=== PATIENT | male | born 1990 | race Caucasian/White ===

== ENCOUNTER 2016-11-22 20:00 | Emergency (ER) | payer OTHER ==
[2016-11-22] MEDS ORDERED: METHYLPREDNISOLONE INJ 125 MG/2 ML SDV IV ONE (20:16)
[2016-11-22] MEDS ORDERED: EPINEPHRINE INJ/PF 1 MG/1 ML AMPULE IM ONE ×2 (20:16→21:34)
[2016-11-22] MEDS ORDERED: DIPHENHYDRAMINE HCL 50 MG/ML VIAL IV ONE (20:16)
[2016-11-22] MEDS ORDERED: FAMOTIDINE INJ/PF 20 MG/2 ML SDV IV ONE (20:16)
--- NOTE | 2016-11-22 20:17 | ER Document Report ---
ED Allergic Reaction - General Chief Complaint: Allergic Reaction Stated Complaint: LIP SWELLING,POSSIBLE ALLERGIC REACTION Time Seen by Provider: 11/22/16 20:15 Notes: Patient is a 26-year-old male that comes emergency department for chief complaint of lip swelling after he was stung by a bee on the lower lip just prior to arrival. He states his lower lip has swollen some much he is drooling , he denies difficulty swallowing, he denies difficulty breathing, he denies rash. He has been stung by a bee without a similar reaction in the past, denies history of any reaction like this before. PMH ADHD and kidneys stones. TRAVEL OUTSIDE OF THE [place] IN LAST 30 DAYS: No - Related Data Allergies/Adverse Reactions: Penicillins Allergy (Intermediate, Verified 02/28/14 21:29) Past Medical History - General Information source: Patient - Social History Smoking Status: Never Smoker Drug Abuse: None Lives with: Family Family History: CAD, CVA, DM, Hyperlipidemia, Hypertension, Malignancy Patient has suicidal ideation: No Patient has homicidal ideation: No Renal/ Medical History: Denies: Hx Peritoneal Dialysis Musculoskeltal Medical History: Reports Hx Musculoskeletal Trauma Skin Medical History: Reports Hx Psoriasis Psychiatric Medical History: Reports: Hx Attention Deficit Hyperactivity Disorder Traumatic Medical History: Reports: Hx Fractures Surgical Hx: Negative - Immunizations Immunizations up to date: Yes Hx Diphtheria, Pertussis, Tetanus Vaccination: No Review of Systems - Review of Systems Constitutional: No symptoms reported EENT: See HPI Cardiovascular: No symptoms reported Respiratory: No symptoms reported Gastrointestinal: No symptoms reported Genitourinary: No symptoms reported Male Genitourinary: No symptoms reported Musculoskeletal: No symptoms reported Skin: No symptoms reported Hematologic/Lymphatic: No symptoms reported Neurological/Psychological: No symptoms reported Physical Exam - Vital signs Vitals: Temp Pulse Resp BP Pulse Ox 98.3 F 96 20 144/111 H 97 11/22/16 20:05 11/22/16 20:05 11/22/16 20:05 11/22/16 20:05 11/22/16 20:05 Interpretation: Normal - General General appearance: Anxious In distress: None - HEENT Head: Normocephalic, Atraumatic Eyes: Normal Conjunctiva: Normal Extraocular movements intact: Yes Eyelashes: Normal Pupils: PERRL Ears: Normal External canal: Normal Tympanic membrane: Normal Sinus: Normal Nasal: Normal Mouth/Lips: Other - Swelling of the bilateral lower lip the size of the usual, no bleeding, normal tongue, pharynx exam, normal ENT exam otherwise Pharynx: Normal Neck: Normal - Respiratory Respiratory status: No respiratory distress Chest status: Nontender Breath sounds: Normal Chest palpation: Normal - Cardiovascular Rhythm: Regular. No: Tachycardia Heart sounds: Normal auscultation, S1 appreciated, S2 appreciated Murmur: No - Abdominal Inspection: Normal Distension: No distension Bowel sounds: Normal Tenderness: Nontender. No: Tender, Guarding Organomegaly: No organomegaly - Back Back: Normal, Nontender - Extremities General upper extremity: Normal inspection, Nontender, Normal color, Normal ROM , Normal temperature General lower extremity: Normal inspection, Nontender, Normal color, Normal ROM , Normal temperature, Normal weight bearing. No: Armando's sign - Neurological Neuro grossly intact: Yes Cognition: Normal Orientation: AAOx4 Stephen Coma Scale Eye Opening: Spontaneous Paxton Coma Scale Verbal: Oriented Paxton Coma Scale Motor: Obeys Commands Stephen Coma Scale Total: 15 Speech: Normal Motor strength normal: LUE, RUE, LLE, RLE Sensory: Normal - Psychological Associated symptoms: Normal affect, Normal mood - Skin Skin Temperature: Warm Skin Moisture: Dry Skin Color: Normal Course - Re-evaluation Re-evalutation: Minimal improvement after first epinephrine, patient given a second epinephrine shortly after this. Given Benadryl, Pepcid, Solu-Medrol. Patient's lip almost completely resolved, no additional mucous membrane swelling or other abnormalities are noted. Patient monitored for almost 3 hours, he is asking multiple times to go home at this point. Discussed with patient in detail. Patient will be provided with medications, given strict return precautions, patient states satisfaction and agreement. - Vital Signs Vital signs: Temp Pulse Resp BP Pulse Ox 98.3 F 96 20 105/58 L 98 11/22/16 20:05 11/22/16 20:05 11/23/16 00:01 11/23/16 00:01 11/23/16 00:01 Discharge - Discharge Clinical Impression: Wasp sting Qualifiers: Encounter type: initial encounter Injury intent: accidental or unintentional Qualified Code(s): T63.461A - Toxic effect of venom of wasps, accidental ( unintentional), initial encounter Allergic reaction Qualifiers: Encounter type: initial encounter Qualified Code(s): T78.40XA - Allergy, unspecified, initial encounter Condition: Stable Disposition: HOME, SELF-CARE Additional Instructions: Take the prednisone as prescribed, take the Zyrtec and Pepcid for 1 week Follow-up with primary care. In the event of repeated bee sting with allergic reaction, take your EpiPen and return immediately to the emergency department. Return for any other concerning symptoms. Prescriptions: Cetirizine HCl [Zyrtec 10 mg Tablet] 1 tab PO DAILY #30 tablet Epinephrine [Epipen 2-Reginald] 0.3 mg IM ASDIR PRN #1 packet PRN Reason: Famotidine [Pepcid 20 mg Tablet] 20 mg PO DAILY #12 tablet Prednisone [Deltasone 10 mg Tablet] 10 mg PO ASDIR PRN #21 tablet PRN Reason: Forms: Return to Work
[2016-11-23 00:45] VITALS: BP 105/58
== END 2016-11-23 00:47 | disposition home or self-care (01) ==
LOC: ER 20:00
DX: T63.461A Toxic effect of venom of wasps, accidental (unintentional), initial encounter (principal); R22.0 Localized swelling, mass and lump, head; Z88.0 Allergy status to penicillin
CPT/HCPCS: 99283; 96372; 96374; 96375; J1200; J0171; J2930; S0028

== ENCOUNTER 2017-01-27 20:22 | Emergency (ER) | payer OTHER ==
[2017-01-27] MEDS ORDERED: AZITHROMYCIN 250 MG TABLET PO ONE (22:50)
[2017-01-27] MEDS ORDERED: DEXAMETHASONE 4 MG TABLET PO ONE (22:51)
--- NOTE | 2017-01-27 22:52 | ER Document Report ---
ED General - General Chief Complaint: Sore Throat Stated Complaint: SORE THROAT Time Seen by Provider: 01/27/17 22:08 Notes: Patient is a 27-year-old male with a past medical history of strep pharyngitis who presents with concerns that he has had a recurrence of strep. He reports that for the past 2 days he has had a progressively worsening soreness to his throat which is a constant, aching, burning pain. Swallowing worsens the pain. He has tried ibuprofen without improvement of the pain. He has a history of similar symptoms in the past. He denies any associated fever or constitutional symptoms. He has not seen his primary care doctor regarding today's concerns. TRAVEL OUTSIDE OF THE [place] IN LAST 30 DAYS: No - Related Data Allergies/Adverse Reactions: Penicillins Allergy (Intermediate, Verified 01/27/17 20:58) alcohol Allergy (Verified 01/27/17 20:58) bee venom protein (honey bee) Allergy (Verified 01/27/17 20:58) Past Medical History - General Information source: Patient - Social History Smoking Status: Never Smoker Frequency of alcohol use: None Drug Abuse: None Family History: CAD, CVA, DM, Hyperlipidemia, Hypertension, Malignancy Renal/ Medical History: Denies: Hx Peritoneal Dialysis Musculoskeltal Medical History: Reports Hx Musculoskeletal Trauma Skin Medical History: Reports Hx Psoriasis Psychiatric Medical History: Reports: Hx Attention Deficit Hyperactivity Disorder Traumatic Medical History: Reports: Hx Fractures - Immunizations Immunizations up to date: Yes Hx Diphtheria, Pertussis, Tetanus Vaccination: No Review of Systems - Review of Systems Notes: Constitutional: Negative for fever. HENT: Positive for sore throat. Eyes: Negative for visual changes. Cardiovascular: Negative for chest pain. Respiratory: Negative for shortness of breath. Gastrointestinal: Negative for abdominal pain, vomiting or diarrhea. Genitourinary: Negative for dysuria. Musculoskeletal: Negative for back pain. Skin: Negative for rash. Neurological: Negative for headaches, weakness or numbness. 10 point ROS negative except as marked above and in HPI. Physical Exam - Vital signs Vitals: Temp Pulse Resp BP Pulse Ox 98.5 F 81 20 134/84 H 100 01/27/17 20:58 01/27/17 20:58 01/27/17 20:58 01/27/17 20:58 01/27/17 20:58 Interpretation: Normal Notes: PHYSICAL EXAMINATION: GENERAL: appears mildly uncomfortable but in no acute distress HEAD: Atraumatic, normocephalic. EYES: Pupils equal round and reactive to light, extraocular movements intact, sclera anicteric, conjunctiva are normal. ENT: nares patent, bilateral tonsillar exudates. Uvula is midline. Moderately dry mucous membranes NECK: Normal range of motion, bilateral anterior cervical lymphadenopathy that is tender to palpation LUNGS: Breath sounds clear to auscultation bilaterally and equal. No wheezes rales or rhonchi. HEART: Regular rate and rhythm without murmurs ABDOMEN: Soft, nontender, normoactive bowel sounds. No guarding, no rebound. No masses appreciated. EXTREMITIES: Normal range of motion, no pitting or edema. No cyanosis. NEUROLOGICAL: No focal neurological deficits. Moves all extremities spontaneously and on command. PSYCH: Normal mood, normal affect. SKIN: Warm, Dry, normal turgor, no rashes or lesions noted. Course - Re-evaluation Re-evalutation: 01/28/17 03:55 Presentation of several days of sore throat in an otherwise well-appearing patient. Rapid strep is positive. History and exam are not consistent with a retropharyngeal abscess or peritonsillar abscess. Airway is patent. No difficulty handling oral secretions. Vitals within normal limits. Due to patient's penicillin allergy he has been started on a five-day course of azithromycin. A single dose of Decadron was also administered. At this time will discharge with return precautions and follow-up recommendations. Verbal discharge instructions given a the bedside and opportunity for questions given. Medication warnings reviewed. Patient is in agreement with this plan and has verbalized understanding of return precautions and the need for primary care follow-up. - Vital Signs Vital signs: Temp Pulse Resp BP Pulse Ox 99.5 F 103 H 20 130/76 H 100 01/27/17 23:22 01/27/17 23:22 01/27/17 20:59 01/27/17 23:22 01/27/17 23:22 Discharge - Discharge Clinical Impression: Strep pharyngitis Condition: Good Disposition: HOME, SELF-CARE Additional Instructions: You have been diagnosed with strep throat based on a positive strep test. Due to your history of a penicillin allergy you will be treated with azithromycin. Please take 500 mg daily for the next 4 days.. You have also been given a dose of steroids to help with your throat discomfort. Please continue to take ibuprofen 600 mg every 6 hours or Tylenol 1000 mg every 6 hours as needed for throat discomfort. You can also gargle with salt water. Continue to drink plenty of fluids. Follow-up with your primary care doctor in the next several days. Return if you become unable to swallow, have difficulty breathing, pass out, have persistent vomiting that prevents you from being able to tolerate fluids, or have any other symptoms that are concerning to you. Prescriptions: Azithromycin 500 mg PO DAILY #4 tablet Referrals: HOANG STEPHEN MD [Primary Care Provider] - Follow up as needed
[2017-01-28 00:59] VITALS: BP 130/76
== END 2017-01-27 23:23 | disposition home or self-care (01) ==
LOC: ER 20:22
DX: J02.0 Streptococcal pharyngitis (principal)
CPT/HCPCS: 87880; 99283

== ENCOUNTER 2017-06-07 20:32 | Emergency (ER) | payer OTHER ==
[2017-06-07] MEDS ORDERED: KETOROLAC TROMETHAMINE INJ/PF 30 MG/1 ML SDV IV ONE (21:59)
--- NOTE | 2017-06-07 22:00 | ER Document Report ---
ED General - General Chief Complaint: Jaw Pain Stated Complaint: SWELLING OF FACE Mode of Arrival: Ambulatory Information source: Patient TRAVEL OUTSIDE OF THE [place] IN LAST 30 DAYS: No - HPI Notes: 27-year-old male presents today with complaints of left-sided facial tenderness and swelling near his jaw 1 day. Reports intermittent chills, unsure of fevers. Reports pain is 5 out of 10, sharp and achy. Reports recent URI with nasal congestion. reports jaw pain near TMJ joint. pain is worse with eating and chewing, pain radiates to ear. Denies any n/t to face. Denies any trauma. Reports a general headache. Denies any blurred, double or loss of vision. Denies any dental pain or sinus pain. Denies any rashes. Denies any cp, sob, n/v /d, diarrhea. Denies any numbness or tingling down bilateral upper extremities. Denies any dental pain. Vaccinations are up-to-date. - Related Data Allergies/Adverse Reactions: Penicillins Allergy (Intermediate, Verified 06/07/17 20:46) alcohol Allergy (Verified 06/07/17 20:46) bee venom protein (honey bee) Allergy (Verified 06/07/17 20:46) Past Medical History - General Information source: Patient - Social History Smoking Status: Current Every Day Smoker Family History: CAD, CVA, DM, Hyperlipidemia, Hypertension, Malignancy Renal/ Medical History: Denies: Hx Peritoneal Dialysis Musculoskeltal Medical History: Reports Hx Musculoskeletal Trauma Skin Medical History: Reports Hx Psoriasis Psychiatric Medical History: Reports: Hx Attention Deficit Hyperactivity Disorder Traumatic Medical History: Reports: Hx Fractures - Immunizations Immunizations up to date: Yes Hx Diphtheria, Pertussis, Tetanus Vaccination: No Review of Systems - Review of Systems Constitutional: No symptoms reported EENT: See HPI Cardiovascular: No symptoms reported Respiratory: No symptoms reported Gastrointestinal: No symptoms reported Genitourinary: No symptoms reported Male Genitourinary: No symptoms reported Musculoskeletal: No symptoms reported Skin: No symptoms reported Hematologic/Lymphatic: No symptoms reported Neurological/Psychological: No symptoms reported Physical Exam - Vital signs Vitals: Temp Pulse Resp BP Pulse Ox 98.7 F 103 H 14 129/86 H 97 06/07/17 20:53 06/07/17 20:53 06/07/17 20:53 06/07/17 20:53 06/07/17 20:53 Interpretation: Normal, Tachycardic - HEENT Head: Normocephalic - noted tenderness to left mandible, near parotid gland. no Erythema, fluctuance noted. Turning lymphadenopathy. Eyes: Normal Conjunctiva: Normal Cornea: Normal Extraocular movements intact: Yes Sinus: Normal, Tenderness, Other - left mandible tenderness with scant swelling , no erythema or induration. Mouth/Lips: Normal Mucous membranes: Normal Pharynx: Normal Neck: Normal - Respiratory Respiratory status: No respiratory distress Chest status: Nontender Breath sounds: Normal Chest palpation: Normal - Cardiovascular Rhythm: Regular Heart sounds: Normal auscultation Pulses: Normal: Radial - Abdominal Inspection: Normal Distension: No distension Bowel sounds: Normal Tenderness: Nontender Organomegaly: No organomegaly - Neurological Neuro grossly intact: Yes Orientation: AAOx4 Stephen Coma Scale Eye Opening: Spontaneous Stephen Coma Scale Verbal: Oriented Mathis Coma Scale Motor: Obeys Commands Stephen Coma Scale Total: 15 Speech: Normal Cranial nerves: Normal Cerebellar coordination: Normal Additional motor exam normals: 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 Patient also shows to have hypokalemia, gave oral potassium chloride. Discussed to have a high potassium diet, such as salmon, spinach, avocados. Rest of laboratory findings were unremarkable. Will start patient on oral clindamycin and Flagyl in case this is a bacterial infection. Advised to follow-up with PCP within 24 hours. The concerns answered by this provider. After performing a Medical Screening Examination, I estimate there is LOW risk for CENTRAL CORD SYNDROME, EPIDURAL MASS LESION, SEVERE SPINAL STENOSIS, ARTERIAL DISSECTION, MENINGITIS, or ACUTE CORONARY SYNDROME, thus I consider the discharge disposition reasonable. I have reevaluated this patient multiple times and no significant life threatening changes are noted. The patient and I have discussed the diagnosis and risks, and we agree with discharging home to follow-up on an outpatient basis with the understanding that symptoms and presentations can change. We also discussed returning to the Emergency Department immediately if new or worsening symptoms occur. We have discussed the symptoms which are most concerning (e.g., saddle anesthesia, urinary or bowel incontinence or retention, changing or worsening pain) that necessitate immediate return. - Vital Signs Vital signs: Temp Pulse Resp BP Pulse Ox 98.7 F 89 18 124/72 99 06/08/17 02:01 06/08/17 02:01 06/08/17 02:01 06/08/17 02:01 06/08/17 02:01 - Laboratory Result Diagrams: 06/07/17 23:00 06/07/17 23:00 Laboratory results interpreted by me: 06/07/17 06/07/17 23:00 23:00 Monocytes % 16.8 H Potassium 3.5 L C-Reactive Protein 30.4 H Discharge - Discharge Clinical Impression: Acute parotitis Condition: Good Disposition: HOME, SELF-CARE Instructions: Acute Parotid Gland Swelling ([facility]) Additional Instructions: Follow-up with PCP within 1 day. Take antibiotics with food, eat yogurt daily to prevent loose stool. Warm compresses to site 20 minutes on 20 minutes off several times a day. Return to the emergency room with signs and symptoms become worse by calling [id number]: ANTIBIOTIC THERAPY: You have been given an antibiotic prescription. It's important that you take all the medication, unless instructed otherwise by your physician. Failure to complete the entire course can result in relapse of your condition. Common side effects of antibiotics include nausea, intestinal cramping, or diarrhea. Women may develop vaginal yeast infections, and babies can get yeast (thrush) in the mouth following the use of antibiotics. Contact your physician if you develop significant side effects from this medication. Allergy to this antibiotic can result in hives, wheezing, faintness, or itching. If symptoms of allergy occur, stop the medication and call the doctor. Metronidazole Metronidazole (Flagyl) has been prescribed. This medication is used to kill a type of bacteria called anaerobes, and protozoan parasites such as trichomonas and Giardia. Flagyl often causes a metallic taste in the mouth and mild nausea. Do not use alcohol in any form with Flagyl (including alcohol in medication elixirs). Flagyl interacts with alcohol to cause flushing, palpitations, headache, stomach cramps, and vomiting. Do not use Flagyl if you are taking Antabuse (disulfiram). Call the doctor at once if you develop rash, shortness of breath, itching, or lightheadedness. Please contact the following office for an appointment tomorrow or returm immediately if there are any other concerns [facility] [employer] Address: [facility] [address] [facility], [place] [address] FOLLOW-UP CARE: If you have been referred to a physician for follow-up care, call the physician s office for an appointment as you were instructed or within the next two days. If you experience worsening or a significant change in your symptoms, notify the physician immediately or return to the Emergency Department at any time for re-evaluation. Prescriptions: Clindamycin HCl 300 mg PO Q6 #28 capsule Metronidazole [Flagyl 500 mg Tablet] 500 mg PO TID 10 Days #30 tablet Referrals: HOANG STEPHEN MD [Primary Care Provider] - Follow up as needed
[2017-06-07 23:15] LABS: ABSOLUTE LYMPHOCYTES (AUTO) 1.6 10^3/uL (0.5-4.7); ABSOLUTE MONOCYTES (AUTO) 0.8 10^3/uL (0.1-1.4); ABSOLUTE NEUT (AUTO) 2.4 10^3/uL (1.7-8.2); BASOPHILS % (AUTO) 0.6 % (0-2); EOSINOPHILS % (AUTO) 0.2 % (0-6); HEMATOCRIT 41.5 % (37.9-51.0); HEMOGLOBIN 14.6 g/dL (13.5-17.0); LYMPHOCYTES % (AUTO) 33.9 % (13-45); MEAN CORPUSCULAR HEMOGLOBIN 30.5 pg (27.0-33.4); MEAN CORPUSCULAR HGB CONC 35.2 g/dL (32.0-36.0); MEAN CORPUSCULAR VOLUME 87 fl (80-97); MONOCYTES % (AUTO) 16.8 % (3-13); PLATELET COUNT 162 10^3/uL (150-450); SEGMENTED NEUTROPHILS % (AUTO) 48.5 % (42-78); TOTAL CELLS COUNTED % (AUTO) 100 %; WHITE BLOOD COUNT 4.8 10^3/uL (4.0-10.5)
[2017-06-07 23:35] LABS: ALANINE AMINOTRANSFERASE 30 U/L (21-72); ALBUMIN 4.5 g/dL (3.5-5.0); ALKALINE PHOSPHATASE 67 U/L (38-126); ANION GAP 11 (5-19); ASPARTATE AMINO TRANSFERASE 25 U/L (17-59); BILIRUBIN,DIRECT 0.2 mg/dL (0.0-0.4); BILIRUBIN,TOTAL 0.3 mg/dL (0.2-1.3); BLOOD UREA NITROGEN 10 mg/dL (7-20); C-REACTIVE PROTEIN 30.4 mg/L (<10.0); CALCIUM 9.3 mg/dL (8.4-10.2); CARBON DIOXIDE 28 mmol/L (22-30); CHLORIDE 101 mmol/L (98-107); GLUCOSE 84 mg/dL (75-110); POTASSIUM 3.5 mmol/L (3.6-5.0); SODIUM 140.1 mmol/L (137-145); TOTAL PROTEIN 7.2 g/dL (6.3-8.2)
--- NOTE | 2017-06-07 23:57 | RADIOLOGY REPORT (SQ) ---
EXAM DESCRIPTION: CT FACIAL AREA WITH CLINICAL HISTORY: 27 years Male, left parotid area with swelling/tenderness COMPARISON: None. TECHNIQUE: 75 mL Isovue-370 IV contrast. Coronal and sagittal reformat. This exam was performed according to our departmental dose-optimization program, which includes automated exposure control, adjustment of the mA and/or kV according to patient size and/or use of iterative reconstruction technique. FINDINGS: Mild-moderate asymmetric diffuse enlargement of the left parotid gland. No drainable fluid or abscess. Mild bilateral suprahyoid lymphadenopathy includes a 1.8 x 1.1 cm left sided lymph node 1.6 x 0.9 cm right-sided lymph node, image 51 of series 2. Small fluid with air-fluid level of the left maxillary sinus. Small right maxillary mucosal thickening. Inferior cranium, nuchal structures appear otherwise unremarkable. IMPRESSION: Mild left parotitis pattern. No drainable fluid or abscess.
[2017-06-08] MEDS ORDERED: POTASSIUM CHLORIDE 20 MEQ/15 ML UDCUP PO ONE (00:10)
[2017-06-08] MEDS ORDERED: CLINDAMYCIN PHOSPHATE INJ 300 MG/2 ML SDV IV STA (00:12)
[2017-06-08 02:09] VITALS: BP 124/72
== END 2017-06-08 02:09 | disposition home or self-care (01) ==
LOC: ER 20:32
DX: K11.21 Acute sialoadenitis (principal); R68.83 Chills (without fever); D72.821 Monocytosis (symptomatic); E87.6 Hypokalemia; F17.200 Nicotine dependence, unspecified, uncomplicated; Z88.0 Allergy status to penicillin; Z91.030 Bee allergy status
CPT/HCPCS: 99284; 96375; 96365; 36415; 85025; 86140; 80053; 86735; 70487; J1885

== ENCOUNTER 2018-09-18 23:35 | Observation (INO) | payer OTHER ==
[2018-09-19] MEDS ORDERED: FENTANYL CITRATE INJ/PF 100 MCG/2 ML AMPUL IV ONE (00:46)
[2018-09-19 01:55] LABS: ABSOLUTE EOSINOPHILS # (AUTO) 0.1 10^3/uL (0.0-0.6); ABSOLUTE LYMPHOCYTES (AUTO) 1.8 10^3/uL (0.5-4.7); ABSOLUTE MONOCYTES (AUTO) 1.2 10^3/uL (0.1-1.4); ABSOLUTE NEUT (AUTO) 7.5 10^3/uL (1.7-8.2); BASOPHILS % (AUTO) 0.2 % (0-2); EOSINOPHILS % (AUTO) 0.9 % (0-6); HEMATOCRIT 38.7 % (37.9-51.0); HEMOGLOBIN 13.6 g/dL (13.5-17.0); LYMPHOCYTES % (AUTO) 17.4 % (13-45); MEAN CORPUSCULAR HEMOGLOBIN 31.3 pg (27.0-33.4); MEAN CORPUSCULAR HGB CONC 35.3 g/dL (32.0-36.0); MEAN CORPUSCULAR VOLUME 89 fl (80-97); MONOCYTES % (AUTO) 11.4 % (3-13); PLATELET COUNT 182 10^3/uL (150-450); RED BLOOD COUNT 4.37 10^6/uL (4.35-5.55); SEGMENTED NEUTROPHILS % (AUTO) 70.1 % (42-78); TOTAL CELLS COUNTED % (AUTO) 100 %; WHITE BLOOD COUNT 10.6 10^3/uL (4.0-10.5)
[2018-09-19 02:13] LABS: ALANINE AMINOTRANSFERASE 42 U/L (21-72); ALBUMIN 3.9 g/dL (3.5-5.0); ALKALINE PHOSPHATASE 70 U/L (38-126); ANION GAP 10 (5-19); ASPARTATE AMINO TRANSFERASE 36 U/L (17-59); BILIRUBIN,DIRECT 0.3 mg/dL (0.0-0.4); BILIRUBIN,TOTAL 0.6 mg/dL (0.2-1.3); BLOOD UREA NITROGEN 18 mg/dL (7-20); CALCIUM 9.1 mg/dL (8.4-10.2); CARBON DIOXIDE 27 mmol/L (22-30); CHLORIDE 102 mmol/L (98-107); GLUCOSE 86 mg/dL (75-110); SODIUM 139.1 mmol/L (137-145); TOTAL PROTEIN 6.9 g/dL (6.3-8.2); URIC ACID 6.4 mg/dL (3.5-8.5)
[2018-09-19] MEDS ORDERED: VANCOMYCIN HCL INJ 1000 MG VIAL IV ONE (02:55)
[2018-09-19] MEDS ORDERED: OXYCODONE-ACETAMINOPHEN 5-325 MG TABLET PO ONE (03:40)
--- NOTE | 2018-09-19 03:43 | ER Document Report ---
ED Extremity Problem, Lower - General Chief Complaint: Knee Injury Stated Complaint: R KNEE AND ANKLE SWELLING Time Seen by Provider: 09/19/18 00:38 TRAVEL OUTSIDE OF THE [place] IN LAST 30 DAYS: No - HPI Notes: Patient is a 28-year-old male who presents to the emergency department for right leg pain. Patient was seen in the emergency department yesterday and diagnosed with a knee effusion. Patient reports that over the past 24 hours he has developed redness and streaking of the right leg. Patient states it is warm to touch. Patient denies fevers. 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 - Related Data Allergies/Adverse Reactions: Penicillins Allergy (Intermediate, Verified 09/17/18 17:10) bee venom protein (honey bee) Allergy (Verified 09/17/18 17:10) Past Medical History - General Information source: Patient - Social History Smoking Status: Never Smoker Chew tobacco use (# tins/day): Yes Frequency of alcohol use: None Drug Abuse: None Family History: CAD, CVA, DM, Hyperlipidemia, Hypertension, Malignancy Patient has suicidal ideation: No Patient has homicidal ideation: No Renal/ Medical History: Denies: Hx Peritoneal Dialysis Musculoskeletal Medical History: Reports Hx Musculoskeletal Trauma Skin Medical History: Reports Hx Psoriasis Psychiatric Medical History: Reports: Hx Attention Deficit Hyperactivity Disorder Traumatic Medical History: Reports: Hx Fractures - Immunizations Immunizations up to date: Yes Hx Diphtheria, Pertussis, Tetanus Vaccination: No Review of Systems - Review of Systems Constitutional: No symptoms reported EENT: No symptoms reported Cardiovascular: No symptoms reported Respiratory: No symptoms reported Gastrointestinal: No symptoms reported Genitourinary: No symptoms reported Male Genitourinary: No symptoms reported Musculoskeletal: See HPI Skin: See HPI Hematologic/Lymphatic: No symptoms reported Neurological/Psychological: No symptoms reported Physical Exam - Vital signs Vitals: Temp Pulse Resp BP Pulse Ox 98.3 F 90 20 136/80 H 97 09/18/18 23:40 09/18/18 23:40 09/18/18 23:40 09/18/18 23:40 09/18/18 23:40 Interpretation: Normal - Respiratory Respiratory status: No respiratory distress Chest status: Nontender Breath sounds: Normal Chest palpation: Normal - Cardiovascular Rhythm: Regular Heart sounds: Normal auscultation - Abdominal Inspection: Normal Distension: No distension Bowel sounds: Normal Tenderness: Nontender Organomegaly: No organomegaly - Extremities Notes: Right knee + 1 edema, non pitting with abrasion noted to the knee at the midline, circumferential erythema noted from mid thigh all the way down into the foot. Full ROM. + 2 strong right pedal pulse. - Skin Skin Temperature: Warm Skin Moisture: Dry Skin Color: Normal Course - Re-evaluation Re-evalutation: 09/19/18 Although the patient's blood work is not concerning for infection at this time I do believe patient needs hospital admission for IV antibiotics due to how quickly the infection has spread for the past [address] Farris in the emergency department, consulted with him for possible admission and patient to be admitted to the hospital. First dose of Vancomycin ordered. Consult with Dr. Reynoso who who personally evaluated this patient and also agrees that patient needs to be admitted to the hospital for IV antibiotics and further observation. - Vital Signs Vital signs: Temp Pulse Resp BP Pulse Ox 97.5 F 74 14 127/73 H 411 H 09/19/18 06:28 09/19/18 06:28 09/19/18 06:28 09/19/18 06:28 09/19/18 06:28 - Laboratory Result Diagrams: 09/19/18 05:15 09/19/18 01:30 Laboratory results interpreted by me: 09/19/18 01:30 WBC 10.6 H Discharge - Discharge Clinical Impression: Cellulitis Disposition: ADMITTED OBSERVATION Admitting Provider: Brenton (Hospitalist) Unit Admitted: Medical Floor
[2018-09-19] MEDS ORDERED: IPRATROPIUM/ALBUTEROL 0.5-2.5 MG/3 ML AMPUL NEB PRN (04:24)
[2018-09-19] MEDS ORDERED: MAGNESIUM HYDROXIDE SUSP 30 ML UDCUP PO PRN (04:24)
[2018-09-19] MEDS ORDERED: ACETAMINOPHEN 325 MG TABLET PO PRN (04:24)
[2018-09-19] MEDS ORDERED: HYDRALAZINE HCL INJ/PF 20 MG/1 ML SDV IV PRN (04:24)
[2018-09-19] MEDS ORDERED: VANCOMYCIN HCL 0 MG in DEXTROSE 5%-WATER 250 ML IV NR (04:30)
--- NOTE | 2018-09-19 05:13 | PDOC H&P ---
History of Present Illness Admission Date/PCP: 09/19/18 04:16 HOANG STEPHEN MD Patient complains of: Right leg cellulitis History of Present Illness: OSMAR RODRIGUEZ is a 28 year old male with past medical history of ADD on Adderall and oral tobacco presents with 48 hours of right leg pain and erythema prompting evaluation in the emergency room 24 hours ago he is found to have erythema about the knee only he is discharged with oral antibiotics but has had subsequent worsening prompting reevaluation raise found to have erythema involving the foot to the mid thigh with knee effusion. There is no open lesion but has significant tinea pedis. 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 He denies a history of MRSA Past Medical History Cardiac Medical History: Reports: None Pulmonary Medical History: Reports: None EENT Medical History: Reports: None Neurological Medical History: Reports: None Endocrine Medical History: Reports: None Renal/ Medical History: Reports: None Malignancy Medical History: Reports: None GI Medical History: Reports: None Musculoskeltal Medical History: Reports: None Skin Medical History: Reports: Psoriasis Psychiatric Medical History: Reports: Attention Deficit Hyperactivity Disorder Traumatic Medical History: Reports: None Hematology: Reports: None Infectious Medical History: Reports: None Past Surgical History Past Surgical History: Reports: None Social History Information Source: Patient Lives with: Spouse/Significant other Smoking Status: Never Smoker Frequency of Alcohol Use: Social Drugs: None - Advance Directive Resuscitation Status: Full Code Family History Family History: CAD, CVA, DM, Hyperlipidemia, Hypertension, Malignancy Parental Family History Reviewed: Yes Children Family History Reviewed: Yes Sibling(s) Family History Reviewed.: Yes Medication/Allergy Home Medications: Dextroamphetamine/Amphetamine [Adderall 30 mg Tablet] 30 mg PO DAILY 01/03/14 Tramadol HCl [Ultram 50 mg Tablet] 50 mg PO ASDIR PRN #10 tablet 01/03/14 Cyclobenzaprine HCl [Flexeril 10 Mg Tablet] 10 mg PO TID #15 tablet 02/28/14 Hydrocodone/Acetaminophen [[place] 5-325 Tablet] 1 each PO Q4 PRN #15 tablet 02/28/14 Ciprofloxacin HCl [Cipro 500 mg Tablet] 500 mg PO BID #20 tablet 10/14/14 Oxycodone HCl/Acetaminophen [Percocet 5-325 mg Tablet] 1 - 2 tab PO Q4H PRN #15 tablet 10/14/14 Clindamycin HCl 300 mg PO Q8 #30 capsule 11/23/14 Hydrocodone Bit/Homatropine [Hycodan Syrup 5-1.5 mg/5 ml Ud Cup] 5 ml PO Q4HP PRN #120 ml 11/23/14 Ondansetron [Zofran Odt 4 mg Tablet] 1 tab PO Q4H PRN #15 tab.rapdis 10/29/15 Oxycodone HCl/Acetaminophen [Percocet 5-325 mg Tablet] 1 tab PO Q4H PRN #15 tablet 10/29/15 Tamsulosin HCl [Flomax 0.4 mg Cap.sr] 0.4 mg PO DAILY #7 cap.sr.24h 10/29/15 Epinephrine [Epipen 2-Reginald] 0.3 mg IM ASDIR PRN #1 packet 11/22/16 Cetirizine HCl [Zyrtec 10 mg Tablet] 1 tab PO DAILY #30 tablet 11/23/16 Famotidine [Pepcid 20 mg Tablet] 20 mg PO DAILY #12 tablet 11/23/16 Prednisone [Deltasone 10 mg Tablet] 10 mg PO ASDIR PRN #21 tablet 11/23/16 Azithromycin 500 mg PO DAILY #4 tablet 01/27/17 Clindamycin HCl 300 mg PO Q6 #28 capsule 06/08/17 Metronidazole [Flagyl 500 mg Tablet] 500 mg PO TID 10 Days #30 tablet 06/08/17 Allergies/Adverse Reactions: Penicillins Allergy (Intermediate, Verified 09/17/18 17:10) bee venom protein (honey bee) Allergy (Verified 09/17/18 17:10) Review of Systems Constitutional: ABSENT: chills, fever(s), headache(s), weight gain, weight loss Eyes: ABSENT: visual disturbances Ears: ABSENT: hearing changes Cardiovascular: ABSENT: chest pain, dyspnea on exertion, edema, orthropnea, palpitations Respiratory: ABSENT: cough, hemoptysis Gastrointestinal: ABSENT: abdominal pain, constipation, diarrhea, hematemesis, hematochezia, nausea, vomiting Genitourinary: ABSENT: dysuria, hematuria Musculoskeletal: ABSENT: joint swelling Integumentary: ABSENT: rash, wounds Neurological: ABSENT: abnormal gait, abnormal speech, confusion, dizziness, focal weakness, syncope Psychiatric: ABSENT: anxiety, depression, homidical ideation, suicidal ideation Endocrine: ABSENT: cold intolerance, heat intolerance, polydipsia, polyuria Hematologic/Lymphatic: ABSENT: easy bleeding, easy bruising Physical Exam Vital Signs: Temp Pulse Resp BP Pulse Ox 97.8 F 86 16 127/83 H 99 09/19/18 02:55 09/19/18 02:55 09/19/18 02:55 09/19/18 02:55 09/19/18 02:55 Intake & Output 09/17/18 09/18/18 09/19/18 11:59 11:59 11:59 Weight 99.8 kg General appearance: PRESENT: cooperative, mild distress, well-developed, well- nourished Head exam: PRESENT: atraumatic, normocephalic Eye exam: PRESENT: conjunctiva pink, EOMI, PERRLA. ABSENT: scleral icterus Ear exam: PRESENT: normal external ear exam Mouth exam: PRESENT: moist, tongue midline Neck exam: ABSENT: carotid bruit, JVD, lymphadenopathy, thyromegaly Respiratory exam: PRESENT: clear to auscultation rodríguez. ABSENT: rales, rhonchi, wheezes Cardiovascular exam: PRESENT: RRR. ABSENT: diastolic murmur, rubs, systolic murmur Pulses: PRESENT: normal dorsalis pedis pul Vascular exam: PRESENT: normal capillary refill GI/Abdominal exam: PRESENT: normal bowel sounds, soft. ABSENT: distended, guarding, mass, organolmegaly, rebound, tenderness Rectal exam: PRESENT: deferred Extremities exam: PRESENT: full ROM, joint swelling - Right knee,, tenderness, +1 edema, other - Circumferential erythema from the mid thigh to foot, no open ulcer or discharge. ABSENT: calf tenderness, clubbing, pedal edema Neurological exam: PRESENT: alert, awake, oriented to person, oriented to place, oriented to time, oriented to situation, CN II-XII grossly intact. ABSENT: motor sensory deficit Psychiatric exam: PRESENT: appropriate affect, normal mood. ABSENT: homicidal ideation, suicidal ideation Skin exam: PRESENT: dry, intact, warm. ABSENT: cyanosis, rash Results Laboratory Results: 09/19/18 01:30 09/19/18 01:30 09/19/18 09/19/18 01:30 01:30 WBC 10.6 H RBC 4.37 Hgb 13.6 Hct 38.7 MCV 89 MCH 31.3 MCHC 35.3 RDW 13.0 Plt Count 182 Seg Neutrophils % 70.1 Lymphocytes % 17.4 Monocytes % 11.4 Eosinophils % 0.9 Basophils % 0.2 Absolute Neutrophils 7.5 Absolute Lymphocytes 1.8 Absolute Monocytes 1.2 Absolute Eosinophils 0.1 Absolute Basophils 0.0 Sodium 139.1 Potassium 4.0 Chloride 102 Carbon Dioxide 27 Anion Gap 10 BUN 18 Creatinine 0.79 Est GFR ( Amer) > 60 Est GFR (Non-Af Amer) > 60 Glucose 86 Uric Acid 6.4 Calcium 9.1 Total Bilirubin 0.6 AST 36 ALT 42 Alkaline Phosphatase 70 Total Protein 6.9 Albumin 3.9 Assessment and Plan - Diagnosis (1) Cellulitis Is this a current diagnosis for this admission?: Yes Plan: Complicated by significant tinea pedis. Increased risk for MRSA failing outpatient clindamycin he started on vancomycin and Rocephin. Follow-up CBC and blood culture (2) Acute pain of right knee Is this a current diagnosis for this admission?: Yes Plan: Possible bursitis, orthopedic consult if effusion unimproved with empiric antibiotics. - Time Time Spent with patient: 25-34 minutes - Inpatient Certification Medical Necessity: Need Close Monitoring Due to Risk of Patient Decompensation
[2018-09-19 05:34] LABS: ABSOLUTE EOSINOPHILS # (AUTO) 0.1 10^3/uL (0.0-0.6); ABSOLUTE LYMPHOCYTES (AUTO) 2.1 10^3/uL (0.5-4.7); ABSOLUTE MONOCYTES (AUTO) 1.1 10^3/uL (0.1-1.4); BASOPHILS % (AUTO) 0.5 % (0-2); EOSINOPHILS % (AUTO) 1.3 % (0-6); HEMATOCRIT 38.4 % (37.9-51.0); HEMOGLOBIN 13.5 g/dL (13.5-17.0); LYMPHOCYTES % (AUTO) 22.6 % (13-45); MEAN CORPUSCULAR HEMOGLOBIN 30.9 pg (27.0-33.4); MEAN CORPUSCULAR HGB CONC 35.1 g/dL (32.0-36.0); MEAN CORPUSCULAR VOLUME 88 fl (80-97); MONOCYTES % (AUTO) 11.5 % (3-13); PLATELET COUNT 170 10^3/uL (150-450); RED BLOOD COUNT 4.37 10^6/uL (4.35-5.55); RED CELL DISTRIBUTION WIDTH 13.4 % (11.5-14.0); SEGMENTED NEUTROPHILS % (AUTO) 64.1 % (42-78); TOTAL CELLS COUNTED % (AUTO) 100 %; WHITE BLOOD COUNT 9.3 10^3/uL (4.0-10.5)
[2018-09-19] MEDS ORDERED: CEFTRIAXONE 1 GM/D5W RTU 1 GM/50 ML RTUPB IV SCH (06:00)
[2018-09-19] MEDS: HEPARIN SOD (PORCINE) 5,000 UNIT/ML 1 ML SYRINGE SUBCUT SCH ×3 (06:12→21:36)
[2018-09-19] MEDS: NORMAL SALINE 1000 ML 1,000 ML IV PRN ×2 (06:41→14:17)
[2018-09-19] MEDS: DOCUSATE SODIUM 100 MG CAPSULE PO SCH ×2 (10:36→18:11)
[2018-09-19] MEDS: VANCOMYCIN HCL 1,500 MG in DEXTROSE 5%-WATER 250 ML IV SCH ×2 (10:36→18:11)
--- NOTE | 2018-09-19 10:46 | PDOC PROGRESS REPORT ---
Subjective Progress Note for:: 09/19/18 Subjective:: OSMRA RODRIGUEZ is a 28 year old male with past medical history of ADD on Adderall and oral tobacco presents with 48 hours of right leg pain and erythema prompting evaluation in the emergency room 24 hours ago he is found to have erythema about the knee only he is discharged with oral antibiotics but has had subsequent worsening prompting reevaluation raise found to have erythema involving the foot to the mid thigh with knee effusion. There is no open lesion but has significant tinea pedis. 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 Mild improvement of right lower extremity pain, erythema and swelling. No right knee effusion on inspection and physical examination however tender to palpation over the lateral knee, erythema over the proximal lateral thigh. Mild effusion and tenderness over the patellar bursa. Mild leukocytosis has improved, C-reactive protein is elevated at 73.2. My concern is infectious arthritis. We will do an MRI of the right knee, if positive for effusion we will get our orthopedic surgery to do a possible arthrocentesis. Denies any fever, chills, nausea, vomiting, diarrhea, constipation or any urinary symptoms. Reason For Visit: RIGHT LEG CELLULITIS Physical Exam Vital Signs: Temp Pulse Resp BP Pulse Ox 98.3 F 80 14 135/63 H 100 09/19/18 08:10 09/19/18 08:10 09/19/18 08:10 09/19/18 08:10 09/19/18 08:10 Intake & Output 09/18/18 09/19/18 09/20/18 06:59 06:59 06:59 Weight 99.8 kg General appearance: PRESENT: no acute distress, well-developed, well-nourished Head exam: PRESENT: atraumatic, normocephalic Respiratory exam: PRESENT: clear to auscultation rodríguez. ABSENT: rales, rhonchi, wheezes Cardiovascular exam: PRESENT: RRR. ABSENT: diastolic murmur, rubs, systolic murmur GI/Abdominal exam: PRESENT: normal bowel sounds, soft. ABSENT: distended, guarding, mass, organolmegaly, rebound, tenderness Extremities exam: PRESENT: full ROM, joint swelling, tenderness, other - Erythema over right lateral aspect of the thigh. TTP lateral aspect of the knee. Mild swelling over the patella bursa.. ABSENT: calf tenderness, clubbing, pedal edema Results Laboratory Results: 09/19/18 05:15 09/19/18 01:30 09/19/18 09/19/18 09/19/18 01:30 01:30 05:15 WBC 10.6 H 9.3 RBC 4.37 4.37 Hgb 13.6 13.5 Hct 38.7 38.4 MCV 89 88 MCH 31.3 30.9 MCHC 35.3 35.1 RDW 13.0 13.4 Plt Count 182 170 Seg Neutrophils % 70.1 64.1 Lymphocytes % 17.4 22.6 Monocytes % 11.4 11.5 Eosinophils % 0.9 1.3 Basophils % 0.2 0.5 Absolute Neutrophils 7.5 6.0 Absolute Lymphocytes 1.8 2.1 Absolute Monocytes 1.2 1.1 Absolute Eosinophils 0.1 0.1 Absolute Basophils 0.0 0.0 Sodium 139.1 Potassium 4.0 Chloride 102 Carbon Dioxide 27 Anion Gap 10 BUN 18 Creatinine 0.79 Est GFR ( Amer) > 60 Est GFR (Non-Af Amer) > 60 Glucose 86 Uric Acid 6.4 Calcium 9.1 Total Bilirubin 0.6 AST 36 ALT 42 Alkaline Phosphatase 70 C-Reactive Protein Total Protein 6.9 Albumin 3.9 09/19/18 05:15 WBC RBC Hgb Hct MCV MCH MCHC RDW Plt Count Seg Neutrophils % Lymphocytes % Monocytes % Eosinophils % Basophils % Absolute Neutrophils Absolute Lymphocytes Absolute Monocytes Absolute Eosinophils Absolute Basophils Sodium Potassium Chloride Carbon Dioxide Anion Gap BUN Creatinine Est GFR ( Amer) Est GFR (Non-Af Amer) Glucose Uric Acid Calcium Total Bilirubin AST ALT Alkaline Phosphatase C-Reactive Protein 73.2 H Total Protein Albumin Assessment and Plan - Diagnosis (1) Cellulitis Is this a current diagnosis for this admission?: Yes Plan: Complicated by significant tinea pedis. Increased risk for MRSA failing outpatient clindamycin he started on vancomycin and Rocephin. Follow-up CBC and blood culture (2) Acute pain of right knee Is this a current diagnosis for this admission?: Yes Plan: 09/19/2018. Mild improvement of right lower extremity pain, erythema and swelling. No discernible right knee effusion on inspection and physical examination however tender to palpation over the lateral knee, erythema over the proximal lateral thigh mild effusion and tenderness over the patellar bursa. Mild leukocytosis has improved, C-reactive protein is elevated at 73.2. My concern is infectious arthritis. This could very well be bursitis but we will do an MRI of the right knee, for better evaluation of knee joint if positive for effusion we will get our orthopedic surgery to do a possible arthrocentesis. Meanwhile continue empiric IV antibiotics.
--- NOTE | 2018-09-19 11:24 | RADIOLOGY REPORT (SQ) ---
EXAM DESCRIPTION: MRI RT LOWER JOINT WITHOUT COMPLETED DATE/TIME: 09/19/2018 10:29 am REASON FOR STUDY: Rt Knee Cellulitis, r/o infectious arthritis swollen hot painful to the touch COMPARISON: Right knee films 09/17/2018 TECHNIQUE: Rightknee images acquired and stored on PACS. Multiplanar images include fat sensitive s equences as T1, water sensitive sequences as FST2 or STIR, cartilage sensitive sequences as FSPD, and gradient echo sequences. LIMITATIONS: None. FINDINGS: There is massive distention of a fluid-filled prepatellar bursa measuring 7 cm craniocauda d by 6 cm transverse by 1.7 cm AP. Diffuse surrounding skin thickening and stranding in the adjacent subcutaneous fat. Findings are worrisome for prepatellar bursitis, superimposed infection/inflammat ion could not be excluded. Gout could cause this appearance. Findings discussed with Dr. Dia. JOINT AND BURSAE: Trace joint space fluid in the suprapatellar recess. No Us cyst. BONE CORTEX AND MARROW: No alteration of signal to suggest marrow replacement. No worrisome bone lesi ons. No occult fracture. ACL: Intact. No degeneration or ganglion cyst. PCL: Intact. MCL: Intact. No periligamentous edema or fluid. LCL: Intact. No periligamentous edema or fluid. MEDIAL MENISCUS: No tears. No abnormal signal. LATERAL MENISCUS: No tears. No abnormal signal. MEDIAL COMPARTMENT: Cartilage preserved. No bone bruises or reactive marrow edema. No osteophytes. LATERAL COMPARTMENT: Cartilage preserved. No bone bruises or reactive marrow edema. No osteophytes. PATELLA: No chondromalacia. No subchondral cysts. Medial and lateral retinacula intact. EXTENSOR MECHANISM: Intact. Quadriceps and patella tendons normal. OTHER: No other significant finding. IMPRESSION: Massive distension of the right prepatellar bursa with surrounding cellulitis. Findings are worrisome for gout or infection, report called to the hospitalist attending physician. TECHNICAL DOCUMENTATION: JOB ID: [id number] [employer]- All Rights Reserved Reading location - IP/workstation name: [email or web address]
[2018-09-19] MEDS: KETOROLAC TROMETHAMINE INJ/PF 30 MG/1 ML SDV IV PRN ×2 (13:38→21:35)
[2018-09-19] MEDS ORDERED: DIPHENHYDRAMINE HCL 25 MG CAPSULE PO PRN (14:31)
[2018-09-19] MEDS ORDERED: AMPHETAMINE PO SCH (16:00)
[2018-09-19] MEDS ORDERED: DEXTROAMPHETAMINE PO SCH (16:00)
[2018-09-20] MEDS: NORMAL SALINE 1000 ML 1,000 ML IV PRN (02:45)
[2018-09-20] MEDS: VANCOMYCIN HCL 1,500 MG in DEXTROSE 5%-WATER 250 ML IV SCH (02:45)
[2018-09-20 05:29] LABS: ABSOLUTE EOSINOPHILS # (AUTO) 0.2 10^3/uL (0.0-0.6); ABSOLUTE LYMPHOCYTES (AUTO) 1.7 10^3/uL (0.5-4.7); ABSOLUTE MONOCYTES (AUTO) 0.7 10^3/uL (0.1-1.4); ABSOLUTE NEUT (AUTO) 5.5 10^3/uL (1.7-8.2); BASOPHILS % (AUTO) 0.2 % (0-2); EOSINOPHILS % (AUTO) 2.6 % (0-6); HEMATOCRIT 39.1 % (37.9-51.0); HEMOGLOBIN 13.4 g/dL (13.5-17.0); LYMPHOCYTES % (AUTO) 20.4 % (13-45); MEAN CORPUSCULAR HEMOGLOBIN 30.2 pg (27.0-33.4); MEAN CORPUSCULAR HGB CONC 34.2 g/dL (32.0-36.0); MEAN CORPUSCULAR VOLUME 88 fl (80-97); MONOCYTES % (AUTO) 8.4 % (3-13); PLATELET COUNT 177 10^3/uL (150-450); RED BLOOD COUNT 4.42 10^6/uL (4.35-5.55); RED CELL DISTRIBUTION WIDTH 13.1 % (11.5-14.0); SEGMENTED NEUTROPHILS % (AUTO) 68.4 % (42-78); TOTAL CELLS COUNTED % (AUTO) 100 %; WHITE BLOOD COUNT 8.1 10^3/uL (4.0-10.5)
[2018-09-20 05:49] LABS: ALANINE AMINOTRANSFERASE 31 U/L (21-72); ALBUMIN 3.2 g/dL (3.5-5.0); ALKALINE PHOSPHATASE 59 U/L (38-126); ANION GAP 9 (5-19); ASPARTATE AMINO TRANSFERASE 23 U/L (17-59); BILIRUBIN,DIRECT 0.2 mg/dL (0.0-0.4); BILIRUBIN,TOTAL 0.5 mg/dL (0.2-1.3); BLOOD UREA NITROGEN 15 mg/dL (7-20); CALCIUM 8.8 mg/dL (8.4-10.2); CARBON DIOXIDE 25 mmol/L (22-30); CHLORIDE 107 mmol/L (98-107); GLUCOSE 95 mg/dL (75-110); POTASSIUM 4.6 mmol/L (3.6-5.0); SODIUM 140.5 mmol/L (137-145)
[2018-09-20] MEDS ORDERED: CEFTRIAXONE SODIUM 1,000 MG in NORMAL SALINE 50 ML IV SCH (06:00)
[2018-09-20] MEDS: HEPARIN SOD (PORCINE) 5,000 UNIT/ML 1 ML SYRINGE SUBCUT SCH (06:43)
[2018-09-20] MEDS ORDERED: DEXTROAMPHETAMINE PO SCH (07:00)
[2018-09-20] MEDS ORDERED: AMPHETAMINE PO SCH (07:00)
--- NOTE | 2018-09-20 07:47 | PDOC CONSULTATION ---
History of Present Illness Admission Date/PCP: 09/19/18 04:16 HOANG STEPHEN MD Patient complains of: Right knee pain History of Present Illness: OSMAR RODRIGUEZ is a 28 year old male who began developing right knee pain and swelling approximately 9 days ago on 09/11/2018. Patient was seen by urgent care where he was started on naproxen but pain continued. He then presented to emergency room on 09/18/2018 and was started on antibiotics. However 24 hours later he states the pain and swelling persisted. He was admitted to the hospital service on 09/19/2018. Patient has been on IV antibiotics he states the pain has notably improved since the IV antibiotics. Currently denies fever chills or sweats. 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 He does not wear kneepads. Denies specific injury. Denies history of gout. Current pain /. Past Medical History Cardiac Medical History: Reports: None Pulmonary Medical History: Reports: None EENT Medical History: Reports: None Neurological Medical History: Reports: None Endocrine Medical History: Reports: None Renal/ Medical History: Reports: None Malignancy Medical History: Reports: None GI Medical History: Reports: None Musculoskeltal Medical History: Reports: None Skin Medical History: Reports: Psoriasis Psychiatric Medical History: Reports: Attention Deficit Hyperactivity Disorder, Depression Traumatic Medical History: Reports: None Hematology: Reports: None Infectious Medical History: Reports: None Past Surgical History Past Surgical History: Reports: None Social History Lives with: Spouse/Significant other Smoking Status: Never Smoker Frequency of Alcohol Use: Occasional Hx Recreational Drug Use: No Drugs: None Hx Prescription Drug Abuse: No - Advance Directive Resuscitation Status: Full Code Family History Family History: CAD, CVA, DM, Hyperlipidemia, Hypertension, Malignancy Parental Family History Reviewed: No Children Family History Reviewed: No Sibling(s) Family History Reviewed.: No Medication/Allergy Home Medications: Dextroamphetamine/Amphetamine [Dextroamp-Amphet ER 30 mg Cap] 30 mg PO QAM 09/19/18 Dextroamphetamine/Amphetamine [Dextroamp-Amphetamin 10 mg Tab] 20 mg PO QAM 09/19/18 Naproxen [Naprosyn] 500 mg PO Q12 MDD filled 09/12 for 14 day supply 09/19/18 Allergies/Adverse Reactions: Penicillins Allergy (Intermediate, Verified 09/17/18 17:10) bee venom protein (honey bee) Allergy (Verified 09/17/18 17:10) Review of Systems Constitutional: ABSENT: chills, fever(s), headache(s), weight gain, weight loss Eyes: ABSENT: visual disturbances Ears: ABSENT: hearing changes Cardiovascular: ABSENT: chest pain, dyspnea on exertion, edema, orthropnea, palpitations Respiratory: ABSENT: cough, hemoptysis Gastrointestinal: ABSENT: abdominal pain, constipation, diarrhea, hematemesis, hematochezia, nausea, vomiting Genitourinary: ABSENT: dysuria, hematuria Musculoskeletal: PRESENT: as per HPI Integumentary: ABSENT: rash, wounds Neurological: ABSENT: abnormal gait, abnormal speech, confusion, dizziness, focal weakness, syncope Psychiatric: ABSENT: anxiety, depression, homidical ideation, suicidal ideation Endocrine: ABSENT: cold intolerance, heat intolerance, menstrual abnormalities, polydipsia, polyuria Hematologic/Lymphatic: ABSENT: easy bleeding, easy bruising, lymphadenopathy Physical Exam Vital Signs: Temp Pulse Resp BP Pulse Ox 97.7 F 58 L 18 107/54 L 100 09/20/18 04:11 09/20/18 04:11 09/20/18 04:11 09/20/18 04:11 09/20/18 04:11 Intake & Output 09/19/18 09/20/18 09/21/18 06:59 06:59 06:59 Intake Total 3500 Balance 3500 Weight 99.8 kg General appearance: PRESENT: no acute distress, well-developed, well-nourished Head exam: PRESENT: atraumatic, normocephalic Eye exam: PRESENT: conjunctiva pink, EOMI, PERRLA. ABSENT: scleral icterus Ear exam: PRESENT: normal external ear exam Mouth exam: PRESENT: moist, tongue midline Neck exam: PRESENT: full ROM. ABSENT: carotid bruit, JVD, lymphadenopathy, thyromegaly Cardiovascular exam: PRESENT: RRR. ABSENT: diastolic murmur, rubs, systolic murmur Pulses: PRESENT: normal dorsalis pedis pul, +2 pedal pulses bilateral Vascular exam: PRESENT: normal capillary refill GI/Abdominal exam: PRESENT: normal bowel sounds, soft. ABSENT: distended, gua rding, mass, organolmegaly, rebound, tenderness Rectal exam: PRESENT: deferred Musculoskeletal exam: PRESENT: other - Right knee: No erythema. Swelling anteriorly along the prepatellar bursa. Full knee range of motion. No evidence of effusion. No evidence of calf swelling. No sensory deficits. Small scratch anteriorly. Intact plantarflexion/dorsiflexion Neurological exam: PRESENT: alert, awake, oriented to person, oriented to place, oriented to time, oriented to situation, CN II-XII grossly intact. ABSENT: motor sensory deficit Psychiatric exam: PRESENT: appropriate affect, normal mood. ABSENT: homicidal ideation, suicidal ideation Skin exam: PRESENT: dry, intact, warm. ABSENT: cyanosis, rash Results Laboratory Results: 09/20/18 04:32 09/20/18 04:32 09/19/18 09/19/18 09/20/18 05:15 11:30 04:32 WBC 8.1 RBC 4.42 Hgb 13.4 L Hct 39.1 MCV 88 MCH 30.2 MCHC 34.2 RDW 13.1 Plt Count 177 Seg Neutrophils % 68.4 Lymphocytes % 20.4 Monocytes % 8.4 Eosinophils % 2.6 Basophils % 0.2 Absolute Neutrophils 5.5 Absolute Lymphocytes 1.7 Absolute Monocytes 0.7 Absolute Eosinophils 0.2 Absolute Basophils 0.0 Sodium Potassium Chloride Carbon Dioxide Anion Gap BUN Creatinine Est GFR ( Amer) Est GFR (Non-Af Amer) Glucose Uric Acid 5.3 Calcium Total Bilirubin AST ALT Alkaline Phosphatase C-Reactive Protein 73.2 H Total Protein Albumin 09/20/18 04:32 WBC RBC Hgb Hct MCV MCH MCHC RDW Plt Count Seg Neutrophils % Lymphocytes % Monocytes % Eosinophils % Basophils % Absolute Neutrophils Absolute Lymphocytes Absolute Monocytes Absolute Eosinophils Absolute Basophils Sodium 140.5 Potassium 4.6 Chloride 107 Carbon Dioxide 25 Anion Gap 9 BUN 15 Creatinine 0.63 Est GFR ( Amer) > 60 Est GFR (Non-Af Amer) > 60 Glucose 95 Uric Acid Calcium 8.8 Total Bilirubin 0.5 AST 23 ALT 31 Alkaline Phosphatase 59 C-Reactive Protein Total Protein 6.0 L Albumin 3.2 L Impressions: Lower Extremity MRI 09/19/18 08:31 IMPRESSION: Massive distension of the right prepatellar bursa with surrounding cellulitis. Findings are worrisome for gout or infection, report called to the hospitalist attending physician. Assessment & Plan - Diagnosis (1) Prepatellar bursitis of right knee Is this a current diagnosis for this admission?: Yes Plan: I have reviewed patient's MRI which demonstrates fluid along the prepatellar bursa no evidence of underlying effusion. Today we discussed treatment options patient examination besides the swelling is fairly benign thus septic prepatellar bursitis is unlikely and there is no indication of septic arthritis. After discussing options we will proceed with aspiration of the prepatellar bursa. Upon completion of the aspiration there was evidence of clear appearing fluid no evidence of purulence thus I do not feel patient requires operative intervention. I feel majority patient's pain was likely overlying cellulitis. At this point I have recommended discharge on p.o. antibiotics and anti- inflammatories. Patient may follow-up in the office for recheck. If patient notices increasing redness swelling or pain he will present to the emergency room at that time. Procedure note: Preprocedure diagnosis: Right prepatellar bursitis Postprocedure diagnosis same Procedure detail: Right lower extremities prepped with alcohol. 18-gauge needle was inserted laterally on the prepatellar bursa obtaining 30 cc of straw- colored clear appearing fluid no evidence of purulence. Patient tolerated procedure well. Fluid was sent for aerobic anaerobic culture.
[2018-09-20] MEDS: DOCUSATE SODIUM 100 MG CAPSULE PO SCH (09:41)
[2018-09-20 10:00] LABS: VANCOMYCIN,TROUGH 14.5 ug/mL (5.0-20.0)
[2018-09-20] MEDS ORDERED: DOXYCYCLINE HYCLATE 100 MG TABLET PO SCH (10:00)
[2018-09-20] MEDS ORDERED: AZITHROMYCIN 250 MG TABLET PO SCH (10:00)
[2018-09-20 13:35] VITALS: BP 127/73
--- NOTE | 2018-09-29 21:05 | PDOC DISCHARGE SUMMARY ---
General - Admit/Disc Date/PCP Admission Date/Primary Care Provider: 09/19/18 04:16 HOANG STEPHEN MD Discharge Date: 09/20/18 - Additional Information Resuscitation Status: Full Code Discharge Diet: As Tolerated Discharge Activity: Activity As Tolerated, Keep Legs Elevated Prescriptions: Azithromycin [Zithromax 250 mg Tablet] 250 mg PO DAILY #5 tablet Doxycycline Hyclate [Vibramycin 100 mg Tablet] 100 mg PO Q12 #14 tablet Home Medications: Dextroamphetamine/Amphetamine [Dextroamp-Amphet ER 30 mg Cap] 30 mg PO QAM 08/23 02/09 Dextroamphetamine/Amphetamine [Dextroamp-Amphetamin 10 mg Tab] 20 mg PO QAM 09/19/18 Naproxen [Naprosyn] 500 mg PO Q12 MDD filled 09/12 for 14 day supply 09/19/18 Azithromycin [Zithromax 250 mg Tablet] 250 mg PO DAILY #5 tablet 09/20/18 Azithromycin [Zithromax 250 mg Tablet] 250 mg PO DAILY #7 tablet 09/20/18 Doxycycline Hyclate [Vibramycin 100 mg Tablet] 100 mg PO Q12 #14 tablet 09/20/18 History of Present Illness History of Present Illness: OSMAR RODRIGUEZ is a 28 year old male with past medical history of ADD on Adderall and oral tobacco presents with 48 hours of right leg pain and erythema prompting evaluation in the emergency room 24 hours ago he is found to have erythema about the knee only he is discharged with oral antibiotics but has had subsequent worsening prompting reevaluation raise found to have erythema involving the foot to the mid thigh with knee effusion. There is no open lesion but has significant tinea pedis. 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 He denies a history of MRSA Hospital Course Hospital Course: 28 y.o. M presents with 48 hours of right leg pain and erythema. He was evaluated in the emergency room 24 hours ago, found to have erythema only around the knee and was discharged with oral antibiotics but had subsequent worsening of his symptoms. The patient returned to the ED and was admitted to the hospitalist service for suspicion of a septic joint. MRI demonstrates fluid along the prepatellar bursa, no evidence of underlying effusion. Orthopedics dr gilbertned the excess fluid from the prepatellar bursa. It did not appear infected. Based on physical exam, the patient likely has cellulitis to the soft tissue over the R knee. He was sent home with oral antibiotics (doxycycline and azithromycin) to complete treatment of his cellulitis, Physical Exam Vital Signs: Temp Pulse Resp BP Pulse Ox 98.4 F 71 14 127/73 H 97 09/20/18 09:30 09/20/18 09:36 09/20/18 09:36 09/20/18 09:30 09/20/18 09:36 General appearance: PRESENT: no acute distress, well-developed, well-nourished Head exam: PRESENT: atraumatic, normocephalic Eye exam: PRESENT: conjunctiva pink, EOMI, PERRLA. ABSENT: scleral icterus Ear exam: PRESENT: normal external ear exam Mouth exam: PRESENT: moist, tongue midline Neck exam: ABSENT: carotid bruit, JVD, lymphadenopathy, thyromegaly Respiratory exam: PRESENT: clear to auscultation rodríguez. ABSENT: rales, rhonchi, wheezes Cardiovascular exam: PRESENT: RRR. ABSENT: diastolic murmur, rubs, systolic murmur Pulses: PRESENT: normal dorsalis pedis pul Vascular exam: PRESENT: normal capillary refill GI/Abdominal exam: PRESENT: normal bowel sounds, soft. ABSENT: distended, guarding, mass, organolmegaly, rebound, tenderness Rectal exam: PRESENT: deferred Extremities exam: PRESENT: full ROM. ABSENT: calf tenderness, clubbing, pedal edema Neurological exam: PRESENT: alert, awake, oriented to person, oriented to place, oriented to time, oriented to situation, CN II-XII grossly intact. ABSENT: motor sensory deficit Psychiatric exam: PRESENT: appropriate affect, normal mood. ABSENT: homicidal ideation, suicidal ideation Skin exam: PRESENT: dry, intact, warm. ABSENT: cyanosis, rash Results Laboratory Results: 09/20/18 04:32 09/20/18 04:32 Impressions: Lower Extremity MRI 09/19/18 08:31 IMPRESSION: Massive distension of the right prepatellar bursa with surrounding cellulitis. Findings are worrisome for gout or infection, report called to the hospitalist attending physician. Status: Imported from PACS Qualifiers - * PATIENT BEING DISCHARGED WITH ANY OF THE FOLLOWING DIAGNOSIS: No Acute Heart Failure Is this a Heart Failure Patient?: No
== END 2018-09-20 14:00 | disposition home or self-care (01) ==
LOC: ER 23:35 → EH 09-19 04:16 → 3N 09-19 06:24
PROVIDERS: ADMIT Internal Medicine; ATTEND Internal Medicine
PROC: 0M9N3ZZ Drainage of Right Knee Bursa and Ligament, Percutaneous Approach (ICD-10-PCS; principal; 2018-09-20)
DX: M70.41 Prepatellar bursitis, right knee (principal); L03.115 Cellulitis of right lower limb; F98.8 Other specified behavioral and emotional disorders with onset usually occurring in childhood and adolescence; S80.211A Abrasion, right knee, initial encounter; X58.XXXA Exposure to other specified factors, initial encounter; Y93.89 Activity, other specified; Y92.098 Other place in other non-institutional residence as the place of occurrence of the external cause; Y99.0 Civilian activity done for income or pay; B35.3 Tinea pedis; Z72.0 Tobacco use; R79.82 Elevated C-reactive protein (CRP); Z79.899 Other long term (current) drug therapy; Z87.2 Personal history of diseases of the skin and subcutaneous tissue
CPT/HCPCS: 99284; 96375; 96365; 96366; 36415 ×2; 87040; 87205; 87070; 84550; 85025 ×2; 85652; 87075; 86140; 80053 ×2; 80202; 73721; 20610; G0378 ×3; J1644 ×2; J3010; J1885; J0696 ×2; J7060 ×2; J7030 ×2; J3370 ×2

== ENCOUNTER 2019-02-04 23:43 | Inpatient (IN) | payer OTHER ==
[2019-02-05 00:47] LABS: ABSOLUTE LYMPHOCYTES (AUTO) 0.8 10^3/uL (0.5-4.7); ABSOLUTE MONOCYTES (AUTO) 1.5 10^3/uL (0.1-1.4); ABSOLUTE NEUT (AUTO) 11.1 10^3/uL (1.7-8.2); BASOPHILS % (AUTO) 0.2 % (0-2); EOSINOPHILS % (AUTO) 0.3 % (0-6); HEMOGLOBIN 13.8 g/dL (13.5-17.0); LYMPHOCYTES % (AUTO) 5.7 % (13-45); MEAN CORPUSCULAR HEMOGLOBIN 30.7 pg (27.0-33.4); MEAN CORPUSCULAR HGB CONC 34.6 g/dL (32.0-36.0); MEAN CORPUSCULAR VOLUME 89 fl (80-97); MONOCYTES % (AUTO) 10.9 % (3-13); PLATELET COUNT 155 10^3/uL (150-450); RED BLOOD COUNT 4.51 10^6/uL (4.35-5.55); SEGMENTED NEUTROPHILS % (AUTO) 82.9 % (42-78); TOTAL CELLS COUNTED % (AUTO) 100 %; WHITE BLOOD COUNT 13.4 10^3/uL (4.0-10.5)
[2019-02-05 00:57] LABS: APPEARANCE,URINE CLEAR; BILIRUBIN,URINE NEGATIVE (NEGATIVE); COLOR,URINE YELLOW; GLUCOSE, URINE NEGATIVE (NEGATIVE); KETONES,URINE NEGATIVE (NEGATIVE); LEUKOCYTE ESTERASE,URINE NEGATIVE (NEGATIVE); NITRITE,URINE NEGATIVE (NEGATIVE); PROTEIN,URINE NEGATIVE (NEGATIVE); URINE SPECIFIC GRAVITY 1.027; UROBILINOGEN,URINE NEGATIVE mg/dL (<2.0)
[2019-02-05 01:06] LABS: ANION GAP 11 (5-19); BLOOD UREA NITROGEN 12 mg/dL (7-20); CALCIUM 9.3 mg/dL (8.4-10.2); CARBON DIOXIDE 26 mmol/L (22-30); CHLORIDE 101 mmol/L (98-107); GLUCOSE 114 mg/dL (75-110)
[2019-02-05] MEDS ORDERED: KETOROLAC TROMETHAMINE INJ/PF 30 MG/1 ML SDV IV ONE (01:11)
[2019-02-05] MEDS ORDERED: NORMAL SALINE 1000 ML 1,000 ML IV ONE ×2 (01:11→01:30)
--- NOTE | 2019-02-05 01:29 | ER Document Report ---
ED Fever - General Chief Complaint: Fever Stated Complaint: FEVER,SORE THROAT Time Seen by Provider: 02/05/19 01:10 Primary Care Provider: HOANG STEPHEN MD [Primary Care Provider] - Follow up as needed Mode of Arrival: Ambulatory Information source: Patient Notes: Patient is an otherwise healthy 29-year-old male presenting to the emergency department with multiple complaints. Patient reports 10-day history of lumbar midline back pain. He states he thought maybe he was about to have a kidney stone so he started drinking plenty fluids. Over the last 24 hours patient has developed a fever, posterior neck pain, severe headache with photophobia and phonophobia. He states he was seen at an urgent care yesterday, he states they swabbed him for strep throat which was negative and started him on azithromycin. He states his temperature at home has been as high as 103. He denies any recent cough, congestion, vomiting or diarrhea but does report some nausea. All of his immunizations are up-to-date and he denies any chronic medical conditions. He is in the [employer] and was recently at [employer]. TRAVEL OUTSIDE OF THE [place] IN LAST 30 DAYS: No - Related Data Allergies/Adverse Reactions: Penicillins Allergy (Intermediate, Verified 09/17/18 17:10) bee venom protein (honey bee) Allergy (Verified 09/17/18 17:10) Past Medical History - General Information source: Patient - Social History Smoking Status: Never Smoker Frequency of alcohol use: Occasional Drug Abuse: None Family History: CAD, CVA, DM, Hyperlipidemia, Hypertension, Malignancy Renal/ Medical History: Reports: Hx Kidney Stones. Denies: Hx Peritoneal Dialysis Musculoskeletal Medical History: Reports Hx Musculoskeletal Trauma Skin Medical History: Reports Hx Psoriasis Psychiatric Medical History: Reports: Hx Attention Deficit Hyperactivity Disorder, Hx Depression Traumatic Medical History: Reports: Hx Fractures Surgical Hx: Negative - Immunizations Immunizations up to date: Yes Hx Diphtheria, Pertussis, Tetanus Vaccination: No Review of Systems - Review of Systems Constitutional: Chills, Fever EENT: Throat pain Cardiovascular: No symptoms reported Respiratory: No symptoms reported Gastrointestinal: Nausea Genitourinary: No symptoms reported Male Genitourinary: No symptoms reported Musculoskeletal: No symptoms reported Skin: No symptoms reported Hematologic/Lymphatic: No symptoms reported Neurological/Psychological: Confusion, Other - Headache Physical Exam - Vital signs Vitals: Temp Pulse Resp BP Pulse Ox 102.5 F H 123 H 18 142/96 H 97 02/04/19 23:50 02/04/19 23:50 02/04/19 23:50 02/04/19 23:50 02/04/19 23:50 - Notes Notes: PHYSICAL EXAMINATION: GENERAL: Ill-appearing HEAD: Atraumatic, normocephalic. EYES: Pupils equal round and reactive to light, extraocular movements intact, sclera anicteric, conjunctiva are normal. ENT: Nares patent, oropharynx clear without exudates. NECK: Normal range of motion, supple with bilateral lymphadenopathy. LUNGS: Breath sounds clear to auscultation bilaterally and equal. No wheezes rales or rhonchi. HEART: Regular rate and rhythm without murmurs. ABDOMEN: Soft, nontender, nondistended abdomen. No guarding, no rebound. No masses appreciated. Musculoskeletal: Normal range of motion, pain to posterior neck when looking down. Tenderness to the lumbar spinal region. NEUROLOGICAL: Cranial nerves grossly intact. Normal speech, normal gait. Normal sensory, motor exams PSYCH: Normal mood, normal affect. SKIN: Warm, Dry, normal turgor, no rashes or lesions noted. Course - Re-evaluation Re-evalutation: At the time of initial evaluation patient reports headache, fever, neck pain, back pain, sore throat. He states all symptoms started last night. He does have full range of motion of his neck but does have pain to the posterior neck when he looks downward. He was febrile at the time of arrival. He does appear to be acutely ill. IV fluids will be given. I did discuss this with my attending physician who agrees to see the patient in conjunction with myself. Patient was given 2 L of IV fluids. His CBC shows a mild leukocytosis. Chemistries are unremarkable. Urinalysis is also unremarkable. My attending physician did go in and evaluate the patient. He would like to perform a lumbar puncture on this patient as there is a concern for meningitis. Patient does not have any confusion but states that he feels altered. His fever is now gone after administration of IV Toradol here in the emergency department. Dr. Love attempted to perform a lumbar puncture, patient was unable to tolerate so samples were not obtained. Patient is adamantly refusing any further attempts at this. I did discuss with patient that again he could have meningitis and the only way to know for sure is to obtain CSF via a lumbar puncture. Patient remains adamant that he will not undergo any more lumbar puncture attempts. Will start empiric antibiotics, Rocephin and vancomycin and will try to admit the patient. 02/05/19 06:12 Dr. Farris agrees to accept the patient for admission. - Vital Signs Vital signs: Temp Pulse Resp BP Pulse Ox 98.8 F 80 25 H 125/85 97 02/05/19 04:06 02/05/19 04:06 02/05/19 05:01 02/05/19 05:01 02/05/19 05:01 - Laboratory Result Diagrams: 02/05/19 00:15 02/05/19 00:15 Laboratory results interpreted by me: 02/05/19 02/05/19 02/05/19 00:15 00:15 00:15 WBC 13.4 H Lymph % (Auto) 5.7 L Absolute Neuts (auto) 11.1 H Absolute Monos (auto) 1.5 H Seg Neutrophils % 82.9 H Glucose 114 H Urine Ascorbic Acid 20 H Discharge - Discharge Clinical Impression: Neck pain Fever Qualifiers: Fever type: unspecified Qualified Code(s): R50.9 - Fever, unspecified Headache Qualifiers: Headache type: unspecified Headache chronicity pattern: acute headache Intractability: not intractable Qualified Code(s): R51 - Headache Leukocytosis Qualifiers: Leukocytosis type: unspecified Qualified Code(s): D72.829 - Elevated white blood cell count, unspecified Condition: Stable Disposition: ADMITTED INPATIENT Admitting Provider: Brenton (Hospitalist) Unit Admitted: Medical Floor Referrals: HOANG STEPHEN MD [Primary Care Provider] - Follow up as needed
--- NOTE | 2019-02-05 02:30 | RADIOLOGY REPORT (SQ) ---
EXAM DESCRIPTION: CT HEAD WITHOUT IV CONTRAST COMPLETED DATE/TME: 02/05/2019 01:25 CLINICAL HISTORY: 29 years, Male, headache/fever COMPARISON: None. TECHNIQUE: Axial CT images of the brain were obtained without contrast. Sagittal and coronal reformats were performed. [facility] 1043 Images stored on PACS. All CT scanners at this facility use dose modulation, iterative reconstruction, and/or weight based dosing when appropriate to reduce radiation dose to as low as reasonably achievable (ALARA). [facility]: Dose Right [facility]: CareDose [facility]: Dose Right [facility]: Teradose 4D [facility]: Smart Technologies LIMITATIONS: None. FINDINGS: There is no acute cortical infarct, hemorrhage, mass, edema, hydrocephalus, or extra-axial fluid collection. The chauhan-white matter differentiation is preserved. The ventricles appear unremarkable. Mineralization of the bilateral basal ganglia is noted. The paranasal sinuses and mastoid air cells are clear. There is no acute fracture. IMPRESSION: No acute intracranial abnormality. TECHNICAL DOCUMENTATION: Quality ID # 436: Final reports with documentation of one or more dose reduction techniques (e.g., Automated exposure control, adjustment of the mA and/or kV according to patient size, use of iterative reconstruction technique) copyright 2010 [employer]- All Rights Reserved
[2019-02-05] MEDS ORDERED: LIDOCAINE 1% INJ-PF (10 MG/ML) 30 ML SDV INJ ONE (04:21)
[2019-02-05] MEDS ORDERED: ONDANSETRON HCL INJ/PF 4 MG/2 ML SDV IV ONE (05:23)
[2019-02-05] MEDS ORDERED: ONDANSETRON HCL INJ/PF 4 MG/2 ML SDV ONE (05:23)
[2019-02-05] MEDS ORDERED: VANCOMYCIN HCL INJ 1000 MG VIAL IV ONE (05:36)
[2019-02-05] MEDS ORDERED: CEFTRIAXONE 1 GM/D5W RTU 1 GM/50 ML RTUPB IV ONE (05:36)
[2019-02-05] MEDS ORDERED: IPRATROPIUM/ALBUTEROL 0.5-2.5 MG/3 ML AMPUL NEB PRN (06:17)
[2019-02-05] MEDS ORDERED: PROMETHAZINE HCL 25 MG TABLET PO PRN (06:17)
[2019-02-05] MEDS ORDERED: MAG HYDROX/AL HYDROX/SIMETH SUSP 30 ML UDCUP PO PRN (06:17)
[2019-02-05] MEDS ORDERED: MAGNESIUM HYDROXIDE SUSP 30 ML UDCUP PO PRN (06:17)
[2019-02-05] MEDS ORDERED: NORMAL SALINE 1000 ML 1,000 ML IV SCH (06:30)
[2019-02-05] MEDS ORDERED: VANCOMYCIN HCL 0 MG in DEXTROSE 5%-WATER 250 ML IV NR (06:30)
[2019-02-05] MEDS ORDERED: KETOCONAZOLE 2% SHAMPOO 120 ML BOTTLE TP ONE (06:42)
--- NOTE | 2019-02-05 06:42 | PDOC H&P ---
History of Present Illness Admission Date/PCP: HOANG STEPHEN MD History of Present Illness: OSMAR RODRIGUEZ is a 29 year old male with a past medical history of ADD presents with 3 days of worsening headache, sore throat, stiff neck, fever and photophobia. He denies previous episode or infectious contacts. In the emergency room he is found to have fever, leukocytosis he is intolerant of an LP he is started on vancomycin and Rocephin and referred to the hospitalist for admission. He denies tick exposure or rash. Past Medical History Medical History: None Skin Medical History: Reports: Psoriasis Psychiatric Medical History: Reports: Attention Deficit Hyperactivity Disorder, Depression Past Surgical History Past Surgical History: Reports: None Social History Information Source: Patient Lives with: Alone Smoking Status: Never Smoker Frequency of Alcohol Use: Occasional Hx Recreational Drug Use: No Drugs: None Hx Prescription Drug Abuse: No - Advance Directive Resuscitation Status: Full Code Family History Family History: CAD, CVA, DM, Hyperlipidemia, Hypertension, Malignancy Parental Family History Reviewed: Yes Children Family History Reviewed: Yes Sibling(s) Family History Reviewed.: Yes Medication/Allergy Home Medications: Dextroamphetamine/Amphetamine [Dextroamp-Amphet ER 30 mg Cap] 30 mg PO QAM 09/19/18 Dextroamphetamine/Amphetamine [Dextroamp-Amphetamin 10 mg Tab] 20 mg PO QAM 09/19/18 Naproxen [Naprosyn] 500 mg PO Q12 MDD filled 09/12 for 14 day supply 09/19/18 Azithromycin [Zithromax 250 mg Tablet] 250 mg PO DAILY #5 tablet 09/20/18 Azithromycin [Zithromax 250 mg Tablet] 250 mg PO DAILY #7 tablet 09/20/18 Doxycycline Hyclate [Vibramycin 100 mg Tablet] 100 mg PO Q12 #14 tablet 09/20/18 Allergies/Adverse Reactions: Penicillins Allergy (Intermediate, Verified 09/17/18 17:10) bee venom protein (honey bee) Allergy (Verified 09/17/18 17:10) Review of Systems Constitutional: ABSENT: chills, fever(s), headache(s), weight gain, weight loss Eyes: ABSENT: visual disturbances Ears: ABSENT: hearing changes Cardiovascular: ABSENT: chest pain, dyspnea on exertion, edema, orthropnea, p alpitations Respiratory: ABSENT: cough, hemoptysis Gastrointestinal: ABSENT: abdominal pain, constipation, diarrhea, hematemesis, hematochezia, nausea, vomiting Genitourinary: ABSENT: dysuria, hematuria Musculoskeletal: ABSENT: joint swelling Integumentary: ABSENT: rash, wounds Neurological: ABSENT: abnormal gait, abnormal speech, confusion, dizziness, focal weakness, syncope Psychiatric: ABSENT: anxiety, depression, homidical ideation, suicidal ideation Endocrine: ABSENT: cold intolerance, heat intolerance, polydipsia, polyuria Hematologic/Lymphatic: ABSENT: easy bleeding, easy bruising Physical Exam Vital Signs: Temp Pulse Resp BP Pulse Ox 98.8 F 80 26 H 118/86 H 96 02/05/19 04:06 02/05/19 04:06 02/05/19 06:01 02/05/19 06:01 02/05/19 06:01 Intake & Output 02/03/19 02/04/19 02/05/19 11:59 11:59 11:59 Intake Total 1999 Balance 1999 Weight 104.9 kg General appearance: PRESENT: cooperative, mild distress, well-developed, well- nourished Head exam: PRESENT: atraumatic, normocephalic Eye exam: PRESENT: conjunctiva pink, EOMI, PERRLA. ABSENT: scleral icterus Ear exam: PRESENT: normal external ear exam Mouth exam: PRESENT: moist, tongue midline Throat exam: PRESENT: post pharyngeal erythema, tonsillar erythema, tonsillogmegaly Neck exam: PRESENT: meningismus. ABSENT: carotid bruit, JVD, lymphadenopathy, thyromegaly, tracheostomy Respiratory exam: PRESENT: clear to auscultation rodríguez. ABSENT: rales, rhonchi, wheezes Cardiovascular exam: PRESENT: RRR. ABSENT: diastolic murmur, rubs, systolic murmur Pulses: PRESENT: normal dorsalis pedis pul Vascular exam: PRESENT: normal capillary refill GI/Abdominal exam: PRESENT: normal bowel sounds, soft. ABSENT: distended, guarding, mass, organolmegaly, rebound, tenderness Rectal exam: PRESENT: deferred Extremities exam: PRESENT: full ROM. ABSENT: calf tenderness, clubbing, pedal edema Neurological exam: PRESENT: alert, awake, oriented to person, oriented to place, oriented to time, oriented to situation, CN II-XII grossly intact. ABSENT: motor sensory deficit Psychiatric exam: PRESENT: appropriate affect, normal mood. ABSENT: homicidal ideation, suicidal ideation Skin exam: PRESENT: dry, intact, warm, other - Waxy plaques about the head and face suggestive of seborrheic dermatitis. ABSENT: cyanosis, rash Results Laboratory Results: 02/05/19 00:15 02/05/19 00:15 02/05/19 02/05/19 02/05/19 00:15 00:15 00:15 WBC 13.4 H RBC 4.51 Hgb 13.8 Hct 40.0 MCV 89 MCH 30.7 MCHC 34.6 RDW 13.0 Plt Count 155 Seg Neutrophils % 82.9 H Sodium 137.8 Potassium 4.0 Chloride 101 Carbon Dioxide 26 Anion Gap 11 BUN 12 Creatinine 0.86 Est GFR ( Amer) > 60 Glucose 114 H Lactic Acid Calcium 9.3 Urine Color YELLOW Urine Appearance CLEAR Urine pH 5.0 Ur Specific [place] 1.027 Urine Protein NEGATIVE Urine Glucose (UA) NEGATIVE Urine Ketones NEGATIVE Urine Blood NEGATIVE Urine Nitrite NEGATIVE Ur Leukocyte Esterase NEGATIVE Urine WBC (Auto) 1 Urine RBC (Auto) 1 02/05/19 05:50 WBC RBC Hgb Hct MCV MCH MCHC RDW Plt Count Seg Neutrophils % Sodium Potassium Chloride Carbon Dioxide Anion Gap BUN Creatinine Est GFR ( Amer) Glucose Lactic Acid 0.7 Calcium Urine Color Urine Appearance Urine pH Ur Specific [place] Urine Protein Urine Glucose (UA) Urine Ketones Urine Blood Urine Nitrite Ur Leukocyte Esterase Urine WBC (Auto) Urine RBC (Auto) Impressions: Head CT 02/05/19 01:25 IMPRESSION: No acute intracranial abnormality. TECHNICAL DOCUMENTATION: Quality ID # 436: Final reports with documentation of one or more dose reduction techniques (e.g., Automated exposure control, adjustment of the mA and/or kV according to patient size, use of iterative reconstruction technique) copyright 2011 [employer]- All Rights Reserved Assessment and Plan - Diagnosis (1) Meningitis Is this a current diagnosis for this admission?: Yes Plan: Vancomycin, Rocephin, symptomatic management, refuses LP, follow-up blood culture and CBC (2) Seborrheic dermatitis Is this a current diagnosis for this admission?: Yes Plan: Topical ketoconazole - Time Time Spent with patient: 25-34 minutes - Inpatient Certification Medical Necessity: Need Close Monitoring Due to Risk of Patient Decompensation
[2019-02-05 06:55] LABS: APPEARANCE,URINE CLEAR; BILIRUBIN,URINE NEGATIVE (NEGATIVE); COLOR,URINE STRAW; GLUCOSE, URINE NEGATIVE (NEGATIVE); KETONES,URINE NEGATIVE (NEGATIVE); LEUKOCYTE ESTERASE,URINE NEGATIVE (NEGATIVE); NITRITE,URINE NEGATIVE (NEGATIVE); PROTEIN,URINE NEGATIVE (NEGATIVE); URINE SPECIFIC GRAVITY 1.009; UROBILINOGEN,URINE NEGATIVE mg/dL (<2.0)
[2019-02-05 07:14] LABS: URINE BARBITURATES SCREEN NEGATIVE; URINE BENZODIAZEPINES SCREEN NEGATIVE; URINE COCAINE SCREEN NEGATIVE; URINE MARIJUANA (THC) SCREEN NEGATIVE; URINE METHADONE SCREEN NEGATIVE; URINE PHENCYCLIDINE SCREEN NEGATIVE
--- NOTE | 2019-02-05 07:21 | RADIOLOGY REPORT (SQ) ---
EXAM DESCRIPTION: XR CHEST 1 VIEW COMPLETED DATE/TME: 02/05/2019 05:41 CLINICAL HISTORY: 29 years Male, fever COMPARISON: None. NUMBER OF VIEWS/TECHNIQUE: 1/AP FINDINGS: Adequate lung volume, clear parenchyma, normal cardiac silhouette, and intact bony thorax. IMPRESSION: No acute cardiopulmonary findings.
[2019-02-05 07:25] LABS: URINE AMPHETAMINES SCREEN UNCONFIRMED POSITIVE
[2019-02-05 09:32] LABS: ALBUMIN 3.6 g/dL (3.5-5.0); ALKALINE PHOSPHATASE 56 U/L (38-126); ASPARTATE AMINO TRANSFERASE 25 U/L (17-59); BILIRUBIN,DIRECT 0.2 mg/dL (0.0-0.4); BILIRUBIN,TOTAL 0.6 mg/dL (0.2-1.3); TOTAL PROTEIN 6.1 g/dL (6.3-8.2)
[2019-02-05] MEDS: DOCUSATE SODIUM 100 MG CAPSULE PO SCH ×2 (10:12→17:30)
[2019-02-05] MEDS: ACETAMINOPHEN 325 MG TABLET PO PRN ×2 (12:14→20:06)
[2019-02-05] MEDS: VANCOMYCIN HCL 1,250 MG in DEXTROSE 5%-WATER 250 ML IV SCH ×2 (14:09→21:46)
[2019-02-05] MEDS: HEPARIN SOD (PORCINE) 5,000 UNIT/ML 1 ML VIAL SUBCUT SCH ×2 (14:10→21:49)
[2019-02-06 04:51] LABS: ABSOLUTE LYMPHOCYTES (AUTO) 0.9 10^3/uL (0.5-4.7); ABSOLUTE MONOCYTES (AUTO) 1.4 10^3/uL (0.1-1.4); ABSOLUTE NEUT (AUTO) 10.1 10^3/uL (1.7-8.2); BASOPHILS % (AUTO) 0.3 % (0-2); EOSINOPHILS % (AUTO) 0.1 % (0-6); HEMATOCRIT 40.4 % (37.9-51.0); HEMOGLOBIN 14.1 g/dL (13.5-17.0); LYMPHOCYTES % (AUTO) 7.4 % (13-45); MEAN CORPUSCULAR HEMOGLOBIN 30.9 pg (27.0-33.4); MEAN CORPUSCULAR HGB CONC 34.8 g/dL (32.0-36.0); MEAN CORPUSCULAR VOLUME 89 fl (80-97); MONOCYTES % (AUTO) 11.3 % (3-13); PLATELET COUNT 131 10^3/uL (150-450); RED BLOOD COUNT 4.55 10^6/uL (4.35-5.55); RED CELL DISTRIBUTION WIDTH 13.1 % (11.5-14.0); SEGMENTED NEUTROPHILS % (AUTO) 80.9 % (42-78); TOTAL CELLS COUNTED % (AUTO) 100 %; WHITE BLOOD COUNT 12.5 10^3/uL (4.0-10.5)
[2019-02-06] MEDS: CEFTRIAXONE 1 GM/D5W RTU 1 GM/50 ML RTUPB IV SCH (05:11)
[2019-02-06 05:14] LABS: ANION GAP 9 (5-19); BLOOD UREA NITROGEN 6 mg/dL (7-20); CALCIUM 8.4 mg/dL (8.4-10.2); CARBON DIOXIDE 26 mmol/L (22-30); CHLORIDE 103 mmol/L (98-107); GLUCOSE 105 mg/dL (75-110); POTASSIUM 3.9 mmol/L (3.6-5.0)
[2019-02-06] MEDS: HEPARIN SOD (PORCINE) 5,000 UNIT/ML 1 ML VIAL SUBCUT SCH ×3 (05:14→22:10)
[2019-02-06] MEDS: VANCOMYCIN HCL 1,250 MG in DEXTROSE 5%-WATER 250 ML IV SCH ×3 (06:04→22:13)
[2019-02-06] MEDS: ACETAMINOPHEN 325 MG TABLET PO PRN ×2 (10:16→17:24)
[2019-02-06] MEDS: DOCUSATE SODIUM 100 MG CAPSULE PO SCH ×2 (10:19→17:44)
[2019-02-06] MEDS ORDERED: KETOROLAC TROMETHAMINE INJ/PF 30 MG/1 ML SDV ONE ×2 (11:07→17:32)
[2019-02-06] MEDS ORDERED: KETOROLAC TROMETHAMINE INJ/PF 30 MG/1 ML SDV IV ONE (11:15)
[2019-02-06 12:51] LABS: GLUCOSE,CSF 63 mg/dL (40-70); PROTEIN,CSF 38 mg/dL (12-60)
--- NOTE | 2019-02-06 13:20 | RADIOLOGY REPORT (SQ) ---
EXAM DESCRIPTION: LUMBAR PUNCTURE; FLUORO/NEEDLE PLACEMENT/SPINE COMPLETED DATE/TIME: 02/06/2019 12:15 pm REASON FOR STUDY: possible meningitis, please get opening pressure; HEADACHE COMPARISON: None. FLUOROSCOPY TIME: 10 seconds. 1 Images saved to PACS. TECHNIQUE: Fluoroscopic guided lumbar puncture with opening pressure. LIMITATIONS: None. PROCEDURE: After written consent and assessment were obtained, the patient was brought into the fluo roscopy room and placed prone on the table. The patient's lower back was prepped in a sterile fashion and an entry site was selected under live fluoroscopic guidance. The entry site was anesthetized wit h 1% lidocaine. A 20 gauge needle was advanced through the skin and into the thecal sac at the level of L 3 -L 4 . An opening pressure of 23 units was obtained. Approximately 16 ml of CSF was obtained. The needle was removed and a sterile bandage was placed of the site. Specimens were sent to the lab for testing. A fluoroscopic spot image was saved to PACS confirming level access. FINDINGS: Clear CSF IMPRESSION: Lumbar puncture under fluoroscopy. No immediate complication. COMMENT: Patient medication list reviewed: Yes- Quality ID# 130:Eligible professional attests to doc umenting in the medical record they obtained, updated, or reviewed the patient's current medications. Quality ID 145: Final reports for procedures using fluoroscopy that document radiation exposure indic es, or exposure time and number of fluorographic images (if radiation exposure indices are not availa ble) TECHNICAL DOCUMENTATION: Job ID: [id number] [employer] All Rights Reserved Reading location - IP/workstation name: [email or web address]
[2019-02-06 13:23] LABS: APPEARANCE ALL TUBES CLEAR; COLOR ALL TUBES COLORLESS; CSF TOTAL VOLUME 15.7 CC; CSF TUBE NUMBER 3; RED BLOOD CELL,CSF 0 /uL (0-10); VOLUME TUBE 2 3.8 CC; VOLUME TUBE 4 4.9 CC
[2019-02-06 13:25] LABS: WHITE BLOOD CELL,CSF 1 /uL (0-5)
--- NOTE | 2019-02-06 17:40 | Progress Note ---
Provider Note Provider Note: ID Telephone Consultation/Antibiotic Stewardship - Brief Note Asked to review the patient's chart. Pt not seen or examined. Pt is a 29 year old man who presented with fever, headache, photophobia, sore throat. He was noted to have posterior pharyngeal injection, tonsillar erythema, tonsillomegaly, meningismus. Rocephin and vancomycin were ordered empirically while awaiting further studies, including an LP. This was performed today and revealed clear colorless CSF with normal WBC count, glucose and protein. Blood cultures are negative x 24h. Impression/Recommendations CSF profile is not consistent with bacterial meningitis. Could still have a viral syndrome. If pt has risk factors for HIV acquisition and acute retroviral syndrome is suspected, HIV viral load might be useful, given the time needed before seroconversion occurs. Monospot could also be negative early on in EBV infection as well. If no other indication presents itself with continued evaluation in the next 24-48h, consider stopping vancomycin and Rocephin. Maykel Valdez MD [facility] Infectious Diseases pager [phone]
--- NOTE | 2019-02-06 18:20 | PDOC PROGRESS REPORT ---
Subjective Progress Note for:: 02/06/19 Subjective:: No adverse events overnight. No new complaints. He says his throat is not quite as sore and he was able to eat a little bit today. He still has a headache. He did have another fever today. He had his lumbar puncture today and tolerated it well. Reason For Visit: MENINGITIS Physical Exam Vital Signs: Temp Pulse Resp BP Pulse Ox 98.6 F 93 24 H 136/81 H 100 02/06/19 16:52 02/06/19 16:52 02/06/19 16:52 02/06/19 16:52 02/06/19 16:52 Intake & Output 02/05/19 02/06/19 02/07/19 06:59 06:59 06:59 Intake Total 2049 1102 980 Balance 2049 110 980 Weight 104.9 kg 106.8 kg General appearance: PRESENT: no acute distress, cooperative, disheveled Throat exam: PRESENT: post pharyngeal erythema Neck exam: PRESENT: full ROM, tenderness - Submandibular areas. ABSENT: carotid bruit, JVD, lymphadenopathy, meningismus, thyromegaly Respiratory exam: PRESENT: clear to auscultation rodríguez, symmetrical, unlabored. ABSENT: accessory muscle use, chest wall tenderness, crackles, prolonged expiratory phas, rhonchi, tachypnea, wheezes Cardiovascular exam: PRESENT: RRR, +S1, +S2 Pulses: PRESENT: normal carotid pulses Vascular exam: PRESENT: normal capillary refill GI/Abdominal exam: PRESENT: normal bowel sounds, soft. ABSENT: distended, guar ding, rebound, tenderness Extremities exam: ABSENT: clubbing, pedal edema Musculoskeletal exam: PRESENT: normal inspection. ABSENT: deformity Neurological exam: PRESENT: alert, awake, oriented to person, oriented to place, oriented to time, oriented to situation Psychiatric exam: PRESENT: appropriate affect, normal mood Skin exam: PRESENT: dry, warm Results Laboratory Results: 02/06/19 04:29 02/06/19 04:29 02/06/19 02/06/19 02/06/19 04:29 04:29 12:05 WBC 12.5 H RBC 4.55 Hgb 14.1 Hct 40.4 MCV 89 MCH 30.9 MCHC 34.8 RDW 13.1 Plt Count 131 L Seg Neutrophils % 80.9 H Sodium 137.7 Potassium 3.9 Chloride 103 Carbon Dioxide 26 Anion Gap 9 BUN 6 L Creatinine 0.69 Est GFR ( Amer) > 60 Glucose 105 Calcium 8.4 Fluid Tube Number CSF Volume CSF Appearance CSF Color CSF WBC CSF RBC CSF Glucose 63 CSF Total Protein 38 02/06/19 12:05 WBC RBC Hgb Hct MCV MCH MCHC RDW Plt Count Seg Neutrophils % Sodium Potassium Chloride Carbon Dioxide Anion Gap BUN Creatinine Est GFR ( Amer) Glucose Calcium Fluid Tube Number 3 CSF Volume 15.7 CSF Appearance CLEAR CSF Color COLORLESS CSF WBC 1 CSF RBC 0 CSF Glucose CSF Total Protein Impressions: Head CT 02/05/19 01:25 IMPRESSION: No acute intracranial abnormality. TECHNICAL DOCUMENTATION: Quality ID # 436: Final reports with documentation of one or more dose reduction techniques (e.g., Automated exposure control, adjustment of the mA and/or kV according to patient size, use of iterative reconstruction technique) copyright 2011 [employer]- All Rights Reserved Chest X-Ray 02/05/19 05:41 IMPRESSION: No acute cardiopulmonary findings. Guidance Fluoroscopy 02/06/19 00:00 IMPRESSION: Lumbar puncture under fluoroscopy. No immediate complication. Lumbar Puncture 02/06/19 00:00 IMPRESSION: Lumbar puncture under fluoroscopy. No immediate complication. Assessment and Plan - Diagnosis (1) Fever Qualifiers: Fever type: unspecified Qualified Code(s): R50.9 - Fever, unspecified Is this a current diagnosis for this admission?: Yes Plan: We got his lumbar tap and his CSF was unremarkable. Blood cultures have been unremarkable. Monospot was negative, but since he presented within a day or so of the onset of his symptoms the Monospot could be negative so I sent off for Azeem-Moreau virus antibody titers. These are send out labs and are pending. I told him that I suspect that he probably had a viral syndrome of some sort, and that if his cultures remain negative through tomorrow I will probably discontinue his antibiotics. Infectious disease was consulted and Dr. Valdez's opinion is appreciated. (2) Headache Qualifiers: Headache type: unspecified Headache chronicity pattern: acute headache Intractability: not intractable Qualified Code(s): R51 - Headache Is this a current diagnosis for this admission?: Yes (3) Leukocytosis Qualifiers: Leukocytosis type: unspecified Qualified Code(s): D72.829 - Elevated white blood cell count, unspecified Is this a current diagnosis for this admission?: Yes (4) Neck pain Is this a current diagnosis for this admission?: Yes - Time Time Spent with patient: 15-24 minutes
[2019-02-06 22:09] LABS: VANCOMYCIN,TROUGH 6.5 ug/mL (5.0-20.0)
[2019-02-06] MEDS: KETOROLAC TROMETHAMINE INJ/PF 30 MG/1 ML SDV IV PRN (22:18)
[2019-02-07] MEDS: ACETAMINOPHEN 325 MG TABLET PO PRN ×2 (03:19→17:37)
[2019-02-07] MEDS: CEFTRIAXONE 1 GM/D5W RTU 1 GM/50 ML RTUPB IV SCH (05:07)
[2019-02-07] MEDS: KETOROLAC TROMETHAMINE INJ/PF 30 MG/1 ML SDV IV PRN ×3 (05:08→20:33)
[2019-02-07] MEDS: HEPARIN SOD (PORCINE) 5,000 UNIT/ML 1 ML VIAL SUBCUT SCH ×3 (05:08→21:27)
[2019-02-07] MEDS: VANCOMYCIN HCL 1,250 MG in DEXTROSE 5%-WATER 250 ML IV SCH (05:57)
--- NOTE | 2019-02-07 11:17 | PDOC PROGRESS REPORT ---
Subjective Progress Note for:: 02/07/19 Subjective:: Patient was seen and examined. He is afebrile. His white count improved. He has odynophagia and shivering. Reason For Visit: MENINGITIS Physical Exam Vital Signs: Temp Pulse Resp BP Pulse Ox 98.0 F 58 L 17 115/74 100 02/07/19 08:35 02/07/19 08:35 02/07/19 08:35 02/07/19 08:35 02/07/19 08:35 Intake & Output 02/06/19 02/07/19 02/08/19 06:59 06:59 06:59 Intake Total 1102 1480 250 Balance 1102 1480 250 Weight 235 lb 7.259 oz 235 lb 3.732 oz Exam: Patient is no acute distress Alert oriented to time place person No anxiety or depression Head: atraumatic normocephalic Pupils: are equal reactive Neck: is supple and trachea is central no lymphadenopathy Positive for tonsillar exudates Heart: Regular rate and rhythm Lungs: clear no distress Abdomen: nontender nondistended Neurological exam: unremarkable Musculoskeletal: No joint swelling or effusion chronic lower back pain and tenderness No suicidal or homicidal ideation Results Laboratory Results: 02/06/19 04:29 02/06/19 21:35 02/06/19 02/06/19 02/06/19 12:05 12:05 21:35 Creatinine 0.72 Est GFR ( Amer) > 60 Fluid Tube Number 3 CSF Volume 15.7 CSF Appearance CLEAR CSF Color COLORLESS CSF WBC 1 CSF RBC 0 CSF Glucose 63 CSF Total Protein 38 02/05/19 00:15 Throat Throat Culture - Final NORMAL NELDA Impressions: Head CT 02/05/19 01:25 IMPRESSION: No acute intracranial abnormality. TECHNICAL DOCUMENTATION: Quality ID # 436: Final reports with documentation of one or more dose reduction techniques (e.g., Automated exposure control, adjustment of the mA and/or kV according to patient size, use of iterative reconstruction technique) copyright 2011 [employer]- All Rights Reserved Chest X-Ray 02/05/19 05:41 IMPRESSION: No acute cardiopulmonary findings. Guidance Fluoroscopy 02/06/19 00:00 IMPRESSION: Lumbar puncture under fluoroscopy. No immediate complication. Lumbar Puncture 02/06/19 00:00 IMPRESSION: Lumbar puncture under fluoroscopy. No immediate complication. Assessment and Plan - Diagnosis (1) Tonsillopharyngitis Is this a current diagnosis for this admission?: Yes Plan: Most likely viral. Rapid strep is negative. Throat culture is negative. Stop antibiotics and monitor. Continue Tylenol as needed. (2) Fever Qualifiers: Fever type: unspecified Qualified Code(s): R50.9 - Fever, unspecified Is this a current diagnosis for this admission?: Yes Plan: We got his lumbar tap and his CSF was unremarkable. Blood cultures have been unremarkable. Monospot was negative, but since he presented within a day or so of the onset of his symptoms the Monospot could be negative. We sent off for Azeem-Moreau virus antibody titers. These are send out labs and are pending. Infectious disease was consulted and Dr. Valdez's opinion is appreciated. (3) Headache Qualifiers: Headache type: unspecified Headache chronicity pattern: acute headache Intractability: not intractable Qualified Code(s): R51 - Headache Is this a current diagnosis for this admission?: Yes (4) Leukocytosis Qualifiers: Leukocytosis type: unspecified Qualified Code(s): D72.829 - Elevated white blood cell count, unspecified Is this a current diagnosis for this admission?: Yes (5) Neck pain Is this a current diagnosis for this admission?: Yes
[2019-02-07 13:17] LABS: ANION GAP 13 (5-19); BLOOD UREA NITROGEN 8 mg/dL (7-20); CALCIUM 8.6 mg/dL (8.4-10.2); CARBON DIOXIDE 25 mmol/L (22-30); CHLORIDE 99 mmol/L (98-107); GLUCOSE 104 mg/dL (75-110); POTASSIUM 3.7 mmol/L (3.6-5.0)
[2019-02-07] MEDS: DOCUSATE SODIUM 100 MG CAPSULE PO SCH ×2 (15:41→17:36)
[2019-02-08] MEDS: ACETAMINOPHEN 325 MG TABLET PO PRN ×2 (02:10→12:44)
[2019-02-08] MEDS: KETOROLAC TROMETHAMINE INJ/PF 30 MG/1 ML SDV IV PRN ×2 (03:04→10:42)
[2019-02-08 04:36] LABS: EBV EARLY AG AB DIFFUSE Negative (Neg:<1:20)
[2019-02-08] MEDS: HEPARIN SOD (PORCINE) 5,000 UNIT/ML 1 ML VIAL SUBCUT SCH (05:07)
[2019-02-08 07:16] LABS: HEMATOCRIT 42.3 % (37.9-51.0); HEMOGLOBIN 14.7 g/dL (13.5-17.0); MEAN CORPUSCULAR HEMOGLOBIN 30.3 pg (27.0-33.4); MEAN CORPUSCULAR HGB CONC 34.6 g/dL (32.0-36.0); MEAN CORPUSCULAR VOLUME 87 fl (80-97); PLATELET COUNT 140 10^3/uL (150-450); RED BLOOD COUNT 4.84 10^6/uL (4.35-5.55); RED CELL DISTRIBUTION WIDTH 13.1 % (11.5-14.0)
[2019-02-08 07:41] LABS: EPSTEIN BARR EARLY AG IGG AB <9.0 U/mL (0.0-8.9); EPSTEIN BARR VCA IGG AB 60.6 U/mL (0.0-17.9); EPSTEIN BARR VCA IGM AB <36.0 U/mL (0.0-35.9)
[2019-02-08] MEDS: DOCUSATE SODIUM 100 MG CAPSULE PO SCH (10:38)
--- NOTE | 2019-02-08 11:23 | PDOC DISCHARGE SUMMARY ---
General - Admit/Disc Date/PCP Admission Date/Primary Care Provider: 02/05/19 06:36 HOANG STEPHEN MD Discharge Date: 02/08/19 - Discharge Diagnosis (1) Tonsillopharyngitis Is this a current diagnosis for this admission?: Yes (2) Fever Is this a current diagnosis for this admission?: Yes (3) Headache Is this a current diagnosis for this admission?: Yes (4) Leukocytosis Is this a current diagnosis for this admission?: Yes (5) Neck pain Is this a current diagnosis for this admission?: Yes - Additional Information Resuscitation Status: Full Code Discharge Diet: As Tolerated Discharge Activity: Activity As Tolerated Home Medications: Dextroamphetamine/Amphetamine [Dextroamp-Amphet ER 30 mg Cap] 30 mg PO DAILY@0700 09/19/18 Dextroamphetamine/Amphetamine [Dextroamp-Amphetamin 10 mg Tab] 20 mg PO DAILY@0700 09/19/18 Acetaminophen [Tylenol 325 mg Tablet] 650 mg PO Q4HP PRN tablet 02/08/19 History of Present Illness History of Present Illness: OSMAR RODRIGUEZ is a 29 year old male with a past medical history of ADD presents with 3 days of worsening headache, sore throat, stiff neck, fever and photophobia. He denies previous episode or infectious contacts. In the emerg ency room he is found to have fever, leukocytosis he is intolerant of an LP he is started on vancomycin and Rocephin and referred to the hospitalist for admission. He denies tick exposure or rash. Hospital Course Hospital Course: (1) Tonsillopharyngitis Most likely viral. Rapid strep is negative. Throat culture is negative. EBV serology indicative of prior infection. We stopped antibiotics 02/07/2019 and his white count actually improved and normalized today. He is stable for discharge. Is still having issues with odynophagia but should be able to take Tylenol or Motrin for that. He is able to take fluids with no problems. Should follow-up with his PCP after discharge. (2) Fever We got his lumbar tap and his CSF was unremarkable. Blood cultures have been unremarkable. Monospot was negative. Azeem-Moreau virus antibody titers results as above. Infectious disease was consulted and Dr. Valdez's opinion is appreciated. (3) Headache Significantly improved (4) Leukocytosis Resolved (5) Neck pain Resolved Physical Exam Vital Signs: Temp Pulse Resp BP Pulse Ox 98.3 F 59 L 17 128/62 H 98 02/08/19 04:18 02/08/19 07:00 02/08/19 04:18 02/08/19 04:18 02/08/19 04:18 Intake & Output 02/07/19 02/08/19 02/09/19 06:59 06:59 06:59 Intake Total 1480 700 Output Total 250 Balance 1480 450 Weight 235 lb 3.732 oz 235 lb 3.732 oz Exam: Patient is no acute distress Alert oriented to time place person No anxiety or depression Head: atraumatic normocephalic Pupils: are equal reactive Neck: is supple and trachea is central positive cervical lymphadenopathy Positive for tonsillar exudates Heart: Regular rate and rhythm Lungs: clear no distress Abdomen: nontender nondistended Neurological exam: unremarkable Musculoskeletal: No joint swelling or effusion chronic lower back pain and tenderness No suicidal or homicidal ideation Results Laboratory Results: 02/08/19 06:23 02/07/19 12:40 02/07/19 02/08/19 12:40 06:23 WBC 10.0 RBC 4.84 Hgb 14.7 Hct 42.3 MCV 87 MCH 30.3 MCHC 34.6 RDW 13.1 Plt Count 140 L Sodium 136.5 L Potassium 3.7 Chloride 99 Carbon Dioxide 25 Anion Gap 13 BUN 8 Creatinine 0.63 Est GFR ( Amer) > 60 Glucose 104 Calcium 8.6 02/05/19 00:15 Throat Throat Culture - Final NORMAL NELDA Impressions: Head CT 02/05/19 01:25 IMPRESSION: No acute intracranial abnormality. TECHNICAL DOCUMENTATION: Quality ID # 436: Final reports with documentation of one or more dose reduction techniques (e.g., Automated exposure control, adjustment of the mA and/or kV according to patient size, use of iterative reconstruction technique) copyright 2011 [employer]- All Rights Reserved Chest X-Ray 02/05/19 05:41 IMPRESSION: No acute cardiopulmonary findings. Guidance Fluoroscopy 02/06/19 00:00 IMPRESSION: Lumbar puncture under fluoroscopy. No immediate complication. Lumbar Puncture 02/06/19 00:00 IMPRESSION: Lumbar puncture under fluoroscopy. No immediate complication. Qualifiers - * PATIENT BEING DISCHARGED WITH ANY OF THE FOLLOWING DIAGNOSIS: No Acute Heart Failure - Is this a Heart Failure Patient?: No Plan Time Spent: Greater than 30 Minutes - 35 minutes
[2019-02-08 12:23] VITALS: BP 131/73
== END 2019-02-08 13:20 | disposition home or self-care (01) | DRG 153 ==
LOC: ER 23:43 → EH 02-05 06:36 → 4N 02-05 12:03
PROVIDERS: ADMIT Internal Medicine; ATTEND Internal Medicine
PROC: 00JU3ZZ Inspection of Spinal Canal, Percutaneous Approach (ICD-10-PCS; principal; 2019-02-05)
PROC: 009U3ZX Drainage of Spinal Canal, Percutaneous Approach, Diagnostic (ICD-10-PCS; 2019-02-06)
PROC: B01BZZZ Fluoroscopy of Spinal Cord (ICD-10-PCS; 2019-02-06)
DX: J03.90 Acute tonsillitis, unspecified (principal); R51 Headache; F98.8 Other specified behavioral and emotional disorders with onset usually occurring in childhood and adolescence; M43.6 Torticollis; H53.149 Visual discomfort, unspecified; R50.9 Fever, unspecified; D72.829 Elevated white blood cell count, unspecified; F32.9 Major depressive disorder, single episode, unspecified; R13.10 Dysphagia, unspecified; L21.9 Seborrheic dermatitis, unspecified; L40.9 Psoriasis, unspecified; Z83.3 Family history of diabetes mellitus; Z82.3 Family history of stroke; Z82.49 Family history of ischemic heart disease and other diseases of the circulatory system; Z88.0 Allergy status to penicillin; Z91.030 Bee allergy status
CPT/HCPCS: 36415; 62270; 70450; 71045; 77003; 80048; 80076; 80202; 80307; 81001; 82565; 82945; 83605; 84157; 85025; 85027; 86256; 86308; 86663; 86664; 86665; 86701; 87040; 87070; 87205; 87880; 89050; 99285; J0696; J1644; J1885; J2405; J3370; J3490; J7030; J7060

== ENCOUNTER 2019-02-09 13:25 | Emergency (ER) | payer OTHER ==
[2019-02-09] MEDS ORDERED: NORMAL SALINE 1000 ML 1,000 ML IV ONE ×2 (14:06→15:30)
[2019-02-09] MEDS ORDERED: ONDANSETRON HCL INJ/PF 4 MG/2 ML SDV IV ONE (14:06)
--- NOTE | 2019-02-09 14:06 | ER Document Report ---
ED Medical Screen (RME) - General Chief Complaint: Abdominal Pain Stated Complaint: STOMACH PAIN Time Seen by Provider: 02/09/19 13:59 Primary Care Provider: HOANG STEPHEN MD [Primary Care Provider] - Follow up as needed Notes: Patient is a 29-year-old male who presents the emergency department with a chief complaint of abdominal pain. He states that he was discharged from hospital yesterday. He was admitted to rule out meningitis. Patient states that his pain is in his mid upper abdomen. He states that he has been vomiting and every time he tries to eat is abdomen hurts. Denies any dark/tarry stools. Exam: Soft, tender mid upper abdomen. I have greeted and performed a rapid initial assessment of this patient. A comprehensive ED assessment and evaluation of the patient, analysis of test results and completion of medical decision making process will be conducted by an additional ED providers. TRAVEL OUTSIDE OF THE [place] IN LAST 30 DAYS: No - Related Data Allergies/Adverse Reactions: Penicillins Allergy (Intermediate, Verified 09/17/18 17:10) bee venom protein (honey bee) Allergy (Verified 09/17/18 17:10) Past Medical History - Social History Chew tobacco use (# tins/day): No Frequency of alcohol use: Occasional Family history: CVA, DM, Hyperlipidemia, Hypertension, Malignancy Renal/ Medical History: Reports: Hx Kidney Stones. Denies: Hx Peritoneal Dialysis Musculoskeltal Medical History: Reports Hx Musculoskeletal Trauma Skin Medical History: Reports Hx Psoriasis Psychiatric Medical History: Reports: Hx Attention Deficit Hyperactivity Disorder, Hx Depression Traumatic Medical History: Reports: Hx Fractures - Immunizations Immunizations up to date: Yes Hx Diphtheria, Pertussis, Tetanus Vaccination: No Physical Exam - Vital signs Vitals: Temp Pulse Resp BP Pulse Ox 98.4 F 98 16 146/100 H 95 02/09/19 13:30 02/09/19 13:30 02/09/19 13:30 02/09/19 13:30 02/09/19 13:30 Course - Vital Signs Vital signs: Temp Pulse Resp BP Pulse Ox 98.4 F 98 16 146/100 H 95 02/09/19 13:30 02/09/19 13:30 02/09/19 13:30 02/09/19 13:30 02/09/19 13:30 Doctor's Discharge - Discharge Referrals: HOANG STEPHEN MD [Primary Care Provider] - Follow up as needed
[2019-02-09 14:58] LABS: ABSOLUTE BASOPHILS # (AUTO) 0.1 10^3/uL (0.0-0.2); ABSOLUTE EOSINOPHILS # (AUTO) 0.1 10^3/uL (0.0-0.6); ABSOLUTE LYMPHOCYTES (AUTO) 1.5 10^3/uL (0.5-4.7); ABSOLUTE MONOCYTES (AUTO) 1.3 10^3/uL (0.1-1.4); ABSOLUTE NEUT (AUTO) 8.2 10^3/uL (1.7-8.2); BASOPHILS % (AUTO) 0.7 % (0-2); EOSINOPHILS % (AUTO) 0.8 % (0-6); HEMOGLOBIN 15.9 g/dL (13.5-17.0); LYMPHOCYTES % (AUTO) 13.1 % (13-45); MEAN CORPUSCULAR HEMOGLOBIN 30.3 pg (27.0-33.4); MEAN CORPUSCULAR HGB CONC 34.5 g/dL (32.0-36.0); MEAN CORPUSCULAR VOLUME 88 fl (80-97); MONOCYTES % (AUTO) 11.5 % (3-13); PLATELET COUNT 201 10^3/uL (150-450); RED BLOOD COUNT 5.23 10^6/uL (4.35-5.55); RED CELL DISTRIBUTION WIDTH 13.3 % (11.5-14.0); SEGMENTED NEUTROPHILS % (AUTO) 73.9 % (42-78); TOTAL CELLS COUNTED % (AUTO) 100 %; WHITE BLOOD COUNT 11.1 10^3/uL (4.0-10.5)
[2019-02-09 15:13] LABS: APPEARANCE,URINE SLIGHTLY-CLOUDY; BILIRUBIN,URINE NEGATIVE (NEGATIVE); COLOR,URINE YELLOW; GLUCOSE, URINE NEGATIVE (NEGATIVE); KETONES,URINE 80 mg/dL (NEGATIVE); LEUKOCYTE ESTERASE,URINE NEGATIVE (NEGATIVE); NITRITE,URINE NEGATIVE (NEGATIVE); PROTEIN,URINE NEGATIVE (NEGATIVE); URINE SPECIFIC GRAVITY 1.024; UROBILINOGEN,URINE NEGATIVE mg/dL (<2.0)
[2019-02-09 15:16] LABS: ALBUMIN 4.4 g/dL (3.5-5.0); ALKALINE PHOSPHATASE 94 U/L (38-126); ANION GAP 13 (5-19); ASPARTATE AMINO TRANSFERASE 64 U/L (17-59); BILIRUBIN,DIRECT 0.2 mg/dL (0.0-0.4); BILIRUBIN,TOTAL 0.7 mg/dL (0.2-1.3); BLOOD UREA NITROGEN 16 mg/dL (7-20); CALCIUM 9.7 mg/dL (8.4-10.2); CARBON DIOXIDE 29 mmol/L (22-30); CHLORIDE 101 mmol/L (98-107); GLUCOSE 99 mg/dL (75-110); POTASSIUM 4.2 mmol/L (3.6-5.0); TOTAL PROTEIN 7.8 g/dL (6.3-8.2)
[2019-02-09 15:23] LABS: URINE AMPHETAMINES SCREEN NEGATIVE; URINE BARBITURATES SCREEN NEGATIVE; URINE BENZODIAZEPINES SCREEN NEGATIVE; URINE COCAINE SCREEN NEGATIVE; URINE MARIJUANA (THC) SCREEN NEGATIVE; URINE METHADONE SCREEN NEGATIVE; URINE PHENCYCLIDINE SCREEN NEGATIVE
[2019-02-09] MEDS ORDERED: LIDOCAINE 2% VISCOUS SOLN 20 ML UDCUP PO ONE (15:31)
[2019-02-09] MEDS ORDERED: MAG HYDROX/AL HYDROX/SIMETH SUSP 30 ML UDCUP PO ONE (15:31)
[2019-02-09] MEDS ORDERED: METOCLOPRAMIDE HCL ORAL SOLN 10 MG/10 ML UDCUP PO ONE (15:31)
--- NOTE | 2019-02-09 15:51 | ER Document Report ---
ED GI/ - General Chief Complaint: Abdominal Pain Stated Complaint: STOMACH PAIN Time Seen by Provider: 02/09/19 13:59 Primary Care Provider: [facility] [Provider Group] - Follow up as needed HOANG STEPHEN MD [Primary Care Provider] - Follow up as needed Mode of Arrival: Ambulatory Information source: Patient Notes: 29-year-old male presented to ED for complaint of epigastric pain anytime he eats or drinks in or even swallows his own spit. He states he was in the emergency room and got admitted on Wednesday for fever headache and ear pain he states he was admitted had a bunch of antibiotics spinal blood and urine sent and did not find anything to cause his pain states he was discharged home and then today he has not been able to swallow his spit due to the pain. He does have a history of ADHD depression kidney stones fractured wrist and pilonidal cyst he also had a burn on his arm. The only surgery is a cyst the pilonidal cyst was surgically removed. He states he did have a small soft stools yesterday and it burned and hurt when he passed a stool. TRAVEL OUTSIDE OF THE [place] IN LAST 30 DAYS: No - HPI Patient complains to provider of: Abdominal pain. No: Vomiting - Nausea no vomiting Onset: This morning Timing/Duration: Gradual, Intermittent Quality of pain: Burning, Sharp Severity at maximum: Moderate Severity in ED: Mild Pain Level: 2 Location: Epigastric Associated symptoms: Loss of appetite, Nausea Exacerbated by: Food Relieved by: Denies Similar symptoms previously: Yes Recently seen / treated by doctor: Yes - Related Data Allergies/Adverse Reactions: Penicillins Allergy (Intermediate, Verified 09/17/18 17:10) bee venom protein (honey bee) Allergy (Verified 09/17/18 17:10) Past Medical History - General Information source: Patient - Social History Smoking Status: Former Smoker Chew tobacco use (# tins/day): No Frequency of alcohol use: Social Drug Abuse: None 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 Lives with: Alone Family History: CAD, CVA, DM, Hyperlipidemia, Hypertension, Malignancy Patient has suicidal ideation: No Patient has homicidal ideation: No - Past Medical History Cardiac Medical History: Reports: None Pulmonary Medical History: Reports: None EENT Medical History: Reports: None Neurological Medical History: Reports: None Endocrine Medical History: Reports: None Renal/ Medical History: Reports: Hx Kidney Stones Malignancy Medical History: Reports None GI Medical History: Reports: None Musculoskeletal Medical History: Reports Hx Musculoskeletal Trauma Skin Medical History: Reports Hx Psoriasis Psychiatric Medical History: Reports: Hx Attention Deficit Hyperactivity Disorder, Hx Depression Traumatic Medical History: Reports: Hx Fractures Infectious Medical History: Reports: None Past Surgical History: Reports: Other - Pilonidal cyst removed - Immunizations Immunizations up to date: Yes Hx Diphtheria, Pertussis, Tetanus Vaccination: No Review of Systems - Review of Systems Constitutional: No symptoms reported EENT: No symptoms reported Cardiovascular: No symptoms reported Respiratory: No symptoms reported Gastrointestinal: Abdominal pain - Epigastric pain, Nausea Genitourinary: No symptoms reported Male Genitourinary: No symptoms reported Musculoskeletal: No symptoms reported Skin: No symptoms reported Hematologic/Lymphatic: No symptoms reported Neurological/Psychological: No symptoms reported -: Yes All other systems reviewed and negative Physical Exam - Vital signs Vitals: Temp Pulse Resp BP Pulse Ox 98.4 F 98 16 146/100 H 95 02/09/19 13:30 02/09/19 13:30 02/09/19 13:30 02/09/19 13:30 02/09/19 13:30 Interpretation: Normal - General General appearance: Appears well, Alert - HEENT Head: Normocephalic, Atraumatic Eyes: Normal Pupils: PERRL - Respiratory Respiratory status: No respiratory distress Chest status: Nontender Breath sounds: Normal Chest palpation: Normal - Cardiovascular Rhythm: Regular Heart sounds: Normal auscultation Murmur: No - Abdominal Inspection: Normal Distension: No distension Bowel sounds: Hyperactive Tenderness: Tender Organomegaly: No organomegaly - Back Back: Normal, Nontender - Extremities General upper extremity: Normal inspection, Nontender, Normal color, Normal ROM, Normal temperature General lower extremity: Normal inspection, Nontender, Normal color, Normal ROM, Normal temperature, Normal weight bearing. No: Armando's sign - Neurological Neuro grossly intact: Yes Cognition: Normal Orientation: AAOx4 [place] Coma Scale Eye Opening: Spontaneous [place] Coma Scale Verbal: Oriented [place] Coma Scale Motor: Obeys Commands Stephen Coma Scale Total: 15 Speech: Normal Motor strength normal: LUE, RUE, LLE, RLE Sensory: Normal - Psychological Associated symptoms: Normal affect, Normal mood - Skin Skin Temperature: Warm Skin Moisture: Dry Skin Color: Normal Course - Re-evaluation Re-evalutation: 02/09/19 17:26 Ultrasound and lab reports were discussed with patient and written report given to patient to follow-up with his primary doctor and with [facility]. He did have a gallbladder sludge but no stones or cholecystitis. He had no elevation in his white count or any elevated liver enzymes that were signi ficant. He was given a GI cocktail in the emergency room as well as antinausea medicine and a liter of fluids. He was discharged home with a prescription for Colace, [place], and Reglan. He was instructed to follow-up with his primary care doctor tomorrow or Wednesday as well as the [facility] for this gallbladder disease. Patient verbalized understanding and agreement with treatment plan and patient was discharged home. Patient did have elevated blood pressure he was reminded again to please be sure to follow-up with the primary doctor and to get on some kind of blood pressure medication. - Vital Signs Vital signs: Temp Pulse Resp BP Pulse Ox 98.5 F 87 20 151/94 H 100 02/09/19 17:15 02/09/19 17:15 02/09/19 17:15 02/09/19 17:15 02/09/19 17:15 - Laboratory Result Diagrams: 02/09/19 14:20 02/09/19 14:20 Laboratory results interpreted by me: 02/09/19 02/09/19 02/09/19 14:20 14:20 14:51 WBC 11.1 H AST 64 H Urine Ketones 80 H - Diagnostic Test Radiology reviewed: Image reviewed, Reports reviewed Discharge - Discharge Clinical Impression: Gall bladder disease, Upper abdominal pain Condition: Stable Disposition: HOME, SELF-CARE Instructions: Gallbladder Disease ([facility]) Additional Instructions: Gallbladder Disease Your evaluation shows evidence of gallbladder disease. The gallbladder is a pouch under the liver which stores bile. Stones, infection, or irritation of the gallbladder cause attacks of pain. Certain foods -- fats in particular -- may provoke attacks. The usual treatment for gallbladder disease is surgical removal of the gallbladder -- called a cholecystectomy. You will be referred to a physician qualified to advise you on the best treatment for your problem. Hospitalization is not necessary. Take clear liquids only until you are painfree. After that, you should stay on a low-fat diet, with frequent SMALL meals. Call the doctor or return at once if you develop severe pain, repeated vomiting, fever, or jaundice (a yellow color in the skin and whites of the eyes). Antinausea Medication You have been given a medication to suppress nausea and vomiting. This type of medication can be given as a shot, pill, or suppository. It will usually last for many hours. Pills and shots usually last six to eight hours, suppositories last about 12 hours. For the typical illness, only one or two doses of the medication may be necessary. Mild lightheadedness may occur. This type of medicine can cause drowsiness. Do not drive or operate dangerous machinery while under its influence. Do not mix with alcohol. See your doctor at once if you have muscle spasms or tightness, or uncontrollable motions (particularly of the neck, mouth, or jaw). Persistent vomiting or severe lightheadedness should also be evaluated by the physician. Reglan (Metoclopramide) Reglan has been prescribed. This medicine affects the stomach and intestines. It can be used to treat nausea and vomiting, to prevent reflux of stomach acid up into the esophagus, or to increase the contractions of the stomach and intestines. It is often prescribed for esophagitis, and for paralysis of the stomach in diabetics. Reglan can cause either mild restlessness or drowsiness. You should contact the doctor at once if you become extremely restless, anxious, or cannot sleep, or if you develop uncontrollable motions of the lips, tongue, or jaw. Do not take alcohol with this medicine. Do not drive or operate machinery until you have been taking this medicine long enough to know how it affects you. Call the doctor if you develop abdominal pains, lightheadedness, black stool, or blood in the stool or vomitus. Intravenous (IV) Fluids As part of your care today, you received intravenous (IV) fluids. IV fluids are administered to patients who are dehydrated or to those who have certain chemical (electrolyte) abnormalities that need correcting. Antacid Therapy You have been instructed to start antacid therapy. Antacids directly neutralize stomach acid. This is useful for acid irritation of the esophagus, gastritis, and ulcers. You should take two tablespoons of antacid one hour after each meal and three hours after each meal. If you are not eating, take the antacid every two hours. If you are using a concentrate (such as Maalox TC), use only one tablespoon. Many antacids affect the bowels. The most common problem is diarrhea. In this case, a pure aluminum hydroxide antacid (such as AlternaGel) can be substituted for some or all doses. If the problem is constipation, add a teaspoon of Milk of Magnesia to each dose. Call the doctor if you experience continued diarrhea or constipation, or if you develop lightheadedness, bloody stool or vomitus, severe abdominal pain, or black stool. Oral Narcotic Medication You have been given a prescription for pain control. This medication is a narcotic. It's best taken with food, as nausea can result if taken on an empty stomach. Don't operate machinery or drive within six hours of taking this m edication. Do not combine this medicine with alcohol, or with any medication which can cause sedation (such as cold tablets or sleeping pills) unless you get permission from the physician. Narcotics tend to cause constipation. If possible, drink plenty of fluids and eat a diet high in fiber and fruits. FOLLOW-UP CARE: If you have been referred to a physician for follow-up care, call the physicians office for an appointment as you were instructed or within the next two days. If you experience worsening or a significant change in your symptoms, notify the physician immediately or return to the Emergency Department at any time for re-evaluation. Prescriptions: Hydrocodone/Acetaminophen [[place] 5-325 Tablet] 1 each PO Q6HP PRN #14 tablet PRN Reason: For Pain Scale 3-5 Metoclopramide HCl [Reglan] 10 mg PO Q6HP PRN #20 tablet PRN Reason: For Pain Scale 3-5 Docusate Sodium [Colace] 100 mg PO DAILY #10 capsule Forms: Elevated Blood Pressure, Return to Work Referrals: HOANG STEPHEN MD [Primary Care Provider] - Follow up as needed [facility] [Provider Group] - Follow up as needed
--- NOTE | 2019-02-09 16:48 | RADIOLOGY REPORT (SQ) ---
EXAM DESCRIPTION: U/S ABDOMEN LIMITED W/O DOP COMPLETED DATE/TIME: 02/09/2019 4:35 pm REASON FOR STUDY: upper abdominal pain COMPARISON: None. TECHNIQUE: Dynamic and static grayscale images acquired of the abdomen and recorded on PACS. Additio nal selected color Doppler and spectral images recorded. LIMITATIONS: None. FINDINGS: PANCREAS: No masses. Visualized pancreatic duct normal caliber. LIVER: No masses. Echotexture normal. LIVER VASCULATURE: Normal directional flow of the main portal vein and hepatic veins. GALLBLADDER: Gallbladder sludge. No discrete stones identified. No wall thickening or pericholecyst ic fluid. ULTRASOUND-DETECTED TYLER'S SIGN: Negative. INTRAHEPATIC DUCTS AND COMMON DUCT: CBD and intrahepatic ducts normal caliber. No filling defects. INFERIOR VENA CAVA: Normal flow. AORTA: No aneurysm. RIGHT KIDNEY: Normal size measuring 11.7 cm. Normal echogenicity. No solid or suspicious masses. No hydronephrosis. No calcifications. PERITONEAL AND RIGHT PLEURAL SPACE: No ascites or effusions. OTHER: No other significant findings. IMPRESSION: Gallbladder sludge without secondary evidence of acute cholecystitis. TECHNICAL DOCUMENTATION: JOB ID: [id number] [employer] (FIG)- All Rights Reserved Reading location - IP/workstation name: [email or web address]
[2019-02-09 17:18] VITALS: BP 151/94
== END 2019-02-09 17:19 | disposition home or self-care (01) ==
LOC: ER 13:25
DX: K82.8 Other specified diseases of gallbladder (principal); R10.13 Epigastric pain; R19.4 Change in bowel habit; R10.819 Abdominal tenderness, unspecified site; I10 Essential (primary) hypertension; R63.0 Anorexia; R11.0 Nausea; Z88.0 Allergy status to penicillin; Z91.030 Bee allergy status; Z87.891 Personal history of nicotine dependence
CPT/HCPCS: 99284; 96361; 96374; 36415; 83690; 85025; 80053; 81001; 80307; 76705; J3490; J2405; J7030

== ENCOUNTER 2019-08-01 17:56 | Emergency (ER) | payer OTHER ==
[2019-08-01 18:11] VITALS: BP 136/90
[2019-08-01] MEDS ORDERED: DIPH/PERTUSS(ACELL)/TETANUS VAC/PF 0.5 ML SYR (>=10YO) IM ONE (19:48)
[2019-08-01] MEDS ORDERED: IBUPROFEN 800 MG TABLET PO ONE (19:49)
--- NOTE | 2019-08-01 19:54 | ER Document Report ---
ED Head/Face/Scalp Injury - General Chief Complaint: Head Injury Stated Complaint: HEAD INJURY/LACERATION Time Seen by Provider: 08/01/19 19:36 Primary Care Provider: HOANG STEPHNE MD [Primary Care Provider] - Follow up as needed Mode of Arrival: Ambulatory Information source: Patient Notes: 29-year-old male presented to ED for laceration to the scalp. He states he was going up and then attic on a ladder when he hit his head on the beam that he had just put in place. He denies any loss of consciousness. He did hit the top of his head onto the beam. He did have a 2 cm laceration to the top of his scalp. He is alert oriented respirations regular nonlabored speaking in full sentences. His tetanus is not up-to-date so he will get a tetanus while he is here. He is also received 2 sal in the top of his head. He has been educated on coming to the emergency room to have the sal removed. He has verbalized understanding and agreement with this plan. TRAVEL OUTSIDE OF THE [place] IN LAST 30 DAYS: No - HPI Patient complains to provider of: Contusion, Injury, Laceration Injury to: Head Location of problem: Head Occurred: This afternoon Where: Work Context: Other - Hit his head on a beam Loss consciousness: No loss of consciousness Remembers: Injury, Coming to hospital - Related Data Allergies/Adverse Reactions: Penicillins Allergy (Intermediate, Verified 09/17/18 17:10) bee venom protein (honey bee) Allergy (Verified 09/17/18 17:10) Home Medications: Aderall 50mg Past Medical History - General Information source: Patient - Social History Smoking Status: Former Smoker Chew tobacco use (# tins/day): Yes - Three quarters of a can a day Frequency of alcohol use: Social Drug Abuse: None 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 Lives with: 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 Family History: CAD, CVA, DM, Hyperlipidemia, Hypertension, Malignancy Patient has suicidal ideation: No Patient has homicidal ideation: No - Past Medical History Cardiac Medical History: Reports: None Pulmonary Medical History: Reports: None EENT Medical History: Reports: None Neurological Medical History: Reports: None Renal/ Medical History: Reports: Hx Kidney Stones Malignancy Medical History: Reports None GI Medical History: Reports: None Musculoskeletal Medical History: Reports Hx Musculoskeletal Trauma Skin Medical History: Reports Hx Psoriasis Psychiatric Medical History: Reports: Hx Attention Deficit Hyperactivity Disorder, Hx Depression Traumatic Medical History: Reports: Hx Fractures Infectious Medical History: Reports: None Past Surgical History: Reports: Hx Oral Surgery - [place] teeth, Other - Pilonidal cyst removed - Immunizations Immunizations up to date: Yes Hx Diphtheria, Pertussis, Tetanus Vaccination: No Review of Systems - Review of Systems Constitutional: No symptoms reported EENT: No symptoms reported Cardiovascular: No symptoms reported Respiratory: No symptoms reported Gastrointestinal: No symptoms reported Genitourinary: No symptoms reported Male Genitourinary: No symptoms reported Musculoskeletal: No symptoms reported Skin: Other - Scalp laceration Hematologic/Lymphatic: No symptoms reported Neurological/Psychological: No symptoms reported -: Yes All other systems reviewed and negative Physical Exam - Vital signs Vitals: Temp Pulse Resp BP Pulse Ox 98.9 F 107 H 16 136/90 H 98 08/01/19 18:10 08/01/19 18:10 08/01/19 18:10 08/01/19 18:10 08/01/19 18:10 Interpretation: Normal - General General appearance: Appears well, Alert - HEENT Head: Atraumatic, Open wounds Eyes: Normal Pupils: PERRL Ears: Normal External canal: Normal Tympanic membrane: Normal Sinus: Normal Nasal: Normal Mouth/Lips: Normal Mucous membranes: Normal Pharynx: Normal Neck: Normal - Respiratory Respiratory status: No respiratory distress Chest status: Nontender Breath sounds: Normal Chest palpation: Normal - Cardiovascular Rhythm: Regular Heart sounds: Normal auscultation Murmur: No - Abdominal Inspection: Normal Distension: No distension Bowel sounds: Normal Tenderness: Nontender Organomegaly: No organomegaly - Back Back: Normal, Nontender - Extremities General upper extremity: Normal inspection, Nontender, Normal color, Normal ROM, Normal temperature General lower extremity: Normal inspection, Nontender, Normal color, Normal ROM, Normal temperature, Normal weight bearing. No: Armando's sign - Neurological Neuro grossly intact: Yes Cognition: Normal Orientation: AAOx4 [place] Coma Scale Eye Opening: Spontaneous [place] Coma Scale Verbal: Oriented [place] Coma Scale Motor: Obeys Commands [place] Coma Scale Total: 15 Speech: Normal Motor strength normal: LUE, RUE, LLE, RLE Sensory: Normal - Psychological Associated symptoms: Normal affect, Normal mood - Skin Skin Temperature: Warm Skin Moisture: Dry Skin Color: Normal Skin irregularity: Laceration - 2 cm Location of irregularity: Scalp Course - Vital Signs Vital signs: Temp Pulse Resp BP Pulse Ox 98.9 F 107 H 16 136/90 H 98 08/01/19 18:10 08/01/19 18:10 08/01/19 18:10 08/01/19 18:10 08/01/19 18:10 Procedures - Laceration/Wound Repair Head Time completed: 19:55 Wound length (cm): 2 Wound's Depth, Shape: Superficial, Irregular Laceration pre-procedure: Sterile PPE donned, Betadine prep applied, Sterile drapes applied Anesthetic type: Other - 0 Volume Anesthetic (mLs): 0 Wound explored: Contaminated Irrigated w/ Saline (mLs): 0 Wound Repaired With: Sal Discharge - Discharge Clinical Impression: Scalp laceration Qualifiers: Encounter type: initial encounter Qualified Code(s): S01.01XA - Laceration without foreign body of scalp, initial encounter Condition: Stable Disposition: HOME, SELF-CARE Additional Instructions: Scalp Laceration A scalp laceration requires little care. Dressings are applied only if s evere bleeding or a large flap are present. Usually, once the cut is sutured, you can ignore it. Simply comb the hair over top of it to hide the stitches and go about your usual routine. You can shampoo your hair as needed starting tomorrow. If you need to wear a special hat or protective helmet for work, be careful that it doesn't press on the area. If crusting is bothersome, you can soften the crusts with Polysporin ointment, then shampoo. Infection in a scalp laceration is rare. If any signs of infection occur (swelling, redness, increasing tenderness, red streaks, tender lumps in the neck on the side of the laceration, or fever), see the doctor immediately. Ibuprofen Ibuprofen is an excellent, safe drug for pain control. In addition, it has potent antiinflammatory effects which are beneficial, especially in the treatment of injuries, arthritis, or tendonitis. It's best to take ibuprofen with food. Persons with ulcer disease or allergy to aspirin should notify their physician of this before taking ibuprofen. Take the medication exactly as prescribed. Don't take additional doses unless instructed to do so by your doctor. If you develop wheezing, shortness of breath, hives, faintness, stomach pain, vomiting, or dark black stools, return for re-evaluation at once. SOAP CLEANSING: Gently wash the wound daily using a mild soap (like Ivory, Phisoderm, Neutrogena). Use warm water, rubbing gently until all debris, ooze, and crusting have been washed from the wound. Allow to dry briefly (about 10 minutes) after cleaning. Repeat this cleansing at least three times a day for the first two days and then once or twice a day. ANTIBIOTIC OINTMENT PROTECTION: Your wounds are such that dressing them is not practical or optional. After cleansing, you should apply a thin coating of antibiotic ointment (Bacitracin, not Neosporin) to the wounds at least three times daily. This lessens infection risk, and may decrease the amount of scarring. Use a q-tip or dull butter knife, not your finger, to apply this ointment. Any debris or ooze which builds up in the ointment should be gently rubbed off with a sterile gauze pad. Harder crusting may need to be gently scrubbed off with a clean wash cloth with soap and warm water, perhaps applying a warm, wet wash cloth to the wound for ten minutes first. Development of redness, severe itching, or blistering may mean allergy to the ointment. See the doctor. TETANUS IMMUNIZATION GIVEN: You have been given an immunization against tetanus. Please record this in your records. In general, a booster is needed only once every 10 years. The tetanus shot protects against tetanus or "lockjaw," which is a complication of certain wound infections (the tetanus shot cannot protect against the actual infection). The immunization site may become warm and red due to local reaction. If this occurs, apply warm compresses and take aspirin or ibuprofen to reduce inflammation and discomfort. Return for evaluation if the reaction becomes severe. Care of Stapled Wounds Your laceration has been stapled to keep the skin edges aligned during h ealing. The time of staple removal depends on the nature and location of your cut. Please follow the care instructions the doctor has outlined for you and return for further care, according to the schedule you've been given. A special instrument is needed to remove sal without injuring your skin further, so don't try to take the sal out yourself. Keep the wound and dressing clean. Unless you were told otherwise, you may shower daily, blotting the wound dry with a clean, unused towel. At other times, If the dressing gets wet or blood soaked, remove it and blot the wound dry, then reapply a new dressing. Unless you were instructed otherwise, dressings should be changed at least daily. If any signs of infection occur (swelling, redness, increasing tenderness, red streaks, tender lumps in the armpit or groin above the laceration, or fever), see the doctor immediately. FOLLOW-UP CARE: Please return in __3-5___ days for an infection check and dressing change. Your staple should be removed in ___5__ days. To facilitate a timely removal of your staple, you may return to the Emergency Department at [facility]. You do not need to call for an appointment, but the best time to come in for suture removal is early in the morning. If you have been referred to another physician for follow-up care, call that physicians office for an appointment as you were instructed. If you experience a significant change in your laceration, or if you are concerned there may be an infection (swelling, redness, drainage, increasing tenderness, red streaks, tender lumps in the armpit or groin above the laceration, or fever), return to the Emergency Department immediately re-evaluation. Forms: Elevated Blood Pressure Referrals: HOANG STEPHEN MD [Primary Care Provider] - Follow up as needed
== END 2019-08-01 20:29 | disposition home or self-care (01) ==
LOC: ER 17:56
DX: S01.01XA Laceration without foreign body of scalp, initial encounter (principal); W22.09XA Striking against other stationary object, initial encounter; Y93.89 Activity, other specified; Y99.0 Civilian activity done for income or pay; F90.9 Attention-deficit hyperactivity disorder, unspecified type; Z79.899 Other long term (current) drug therapy; Z72.0 Tobacco use; Z23 Encounter for immunization; Z88.0 Allergy status to penicillin; Z91.030 Bee allergy status
CPT/HCPCS: 90471; 90715; 99283

== ENCOUNTER 2019-08-06 19:49 | Emergency (ER) | payer OTHER ==
[2019-08-06 19:57] VITALS: BP 136/84
--- NOTE | 2019-08-06 20:02 | ER Document Report ---
HPI - HPI Patient complains to provider of: Staple removal Time Seen by Provider: 08/06/19 19:54 Pain Level: Denies Context: 29-year-old male presents emergency department with request to remove sal. Patient she reports 2 sal were placed 5 days ago. He denies pain. Denies fever vomiting. Reports site feels fine. Associated Symptoms: None Exacerbated by: Denies Relieved by: Denies Similar symptoms previously: Yes Recently seen / treated by doctor: Yes - CONSTITUTIONAL Constitutional: DENIES: Fever, Chills - REPRODUCTIVE Reproductive: DENIES: : Past Medical History - General Information source: Patient - Social History Smoking Status: Never Smoker Cigarette use (# per day): No Frequency of alcohol use: None Drug Abuse: None Occupation: [employer] Lives with: Family Family History: CAD, CVA, DM, Hyperlipidemia, Hypertension, Malignancy Patient has suicidal ideation: No Patient has homicidal ideation: No Renal/ Medical History: Reports: Hx Kidney Stones. Denies: Hx Peritoneal Dialysis Musculoskeletal Medical History: Reports Hx Musculoskeletal Trauma Skin Medical History: Reports Hx Psoriasis Psychiatric Medical History: Reports: Hx Attention Deficit Hyperactivity Disorder, Hx Depression Traumatic Medical History: Reports: Hx Fractures Past Surgical History: Reports: Hx Oral Surgery - [place] teeth, Other - Pilonidal cyst removed - Immunizations Immunizations up to date: Yes Hx Diphtheria, Pertussis, Tetanus Vaccination: No Vertical Provider Document - CONSTITUTIONAL Agree With Documented VS: Yes Exam Limitations: No Limitations General Appearance: WD/WN, No Apparent Distress - INFECTION CONTROL TRAVEL OUTSIDE OF THE [place] IN LAST 30 DAYS: No - HEENT HEENT: Atraumatic, Normocephalic - 2 sal top of patient's head site benign. negative: Conjuctival Injection - NECK Neck: Supple - RESPIRATORY Respiratory: No Respiratory Distress - CARDIOVASCULAR Cardiovascular: Regular Rate - MUSCULOSKELETAL/EXTREMETIES Musculoskeletal/Extremeties: MAEW, FROM - NEURO Level of Consciousness: Awake, Alert, Appropriate - DERM Integumentary: Warm, Dry Adult Front & Back Diagram: 1 - 2 sal intact site benign Course - Re-evaluation Re-evalutation: 08/06/19 20:03 Patient instructed on signs and symptoms of infection. [place] removed. Patient instructed monitor the site return for concerns. - Vital Signs Vital signs: Temp Pulse Resp BP Pulse Ox 99.4 F 97 18 136/84 H 97 08/06/19 19:54 08/06/19 19:54 08/06/19 19:54 08/06/19 19:54 08/06/19 19:54 Discharge - Discharge Clinical Impression: Removal of sal Condition: Stable Disposition: HOME, SELF-CARE Instructions: Staple Removal (OM) Additional Instructions: *You have been treated for removal of sal *Monitor the site for signs of infection such as increasing pain, redness, swelling, warmth *Wash your hair with gentle shampoo *Follow up with a primary care provider within 1 week for recheck as indicated *Return to ED for signs of infection, worsening condition,concerns, changes, needs Referrals: HOANG STEPHEN MD [Primary Care Provider] - Follow up as needed
== END 2019-08-06 20:18 | disposition home or self-care (01) ==
LOC: ER 19:49
DX: S01.01XD Laceration without foreign body of scalp, subsequent encounter (principal); X58.XXXD Exposure to other specified factors, subsequent encounter; Z87.442 Personal history of urinary calculi

== ENCOUNTER 2019-10-10 18:47 | Emergency (ER) | payer OTHER ==
--- NOTE | 2019-10-10 19:53 | ER Document Report ---
ED Medical Screen (RME) - General Chief Complaint: Abscess Stated Complaint: ABSCESS/RIGHT ARM Time Seen by Provider: 10/10/19 19:50 Primary Care Provider: HOANG STEPHEN MD [Primary Care Provider] - Follow up as needed Mode of Arrival: Ambulatory Information source: Patient Notes: 29-year-old male presented to ED for abscess to the right upper arm. He states he had a piece of wood about an inch and a quarter long by inch wide there was jammed into his arm couple weeks ago. He states this was a pressure-treated piece of wood. He states he will simply hours and pulled it out. He states he went to the primary care couple days later took some antibiotics that he got better and then now is developed a red painful abscess. He states the pain is about a 4 if you touch it but only her tooth nobody is touching it. He states he definitely knows it is there. It is red and swollen. It is fluctuant. I have greeted and performed a rapid initial assessment of this patient. A comprehensive ED assessment and evaluation of the patient, analysis of test results and completion of medical decision making process will be conducted by an additional ED providers. TRAVEL OUTSIDE OF THE [place] IN LAST 30 DAYS: No - Related Data Allergies/Adverse Reactions: Penicillins Allergy (Intermediate, Verified 10/10/19 19:47) bee venom protein (honey bee) Allergy (Verified 10/10/19 19:47) Past Medical History - Social History Frequency of alcohol use: Heavy Family history: CVA, DM, Hyperlipidemia, Hypertension, Malignancy Renal/ Medical History: Reports: Hx Kidney Stones. Denies: Hx Peritoneal Dialysis Musculoskeltal Medical History: Reports Hx Musculoskeletal Trauma Skin Medical History: Reports Hx Psoriasis Psychiatric Medical History: Reports: Hx Attention Deficit Hyperactivity Disorder, Hx Depression Traumatic Medical History: Reports: Hx Fractures Past Surgical History: Reports: Hx Oral Surgery - [place] teeth, Other - Pilonidal cyst removed - Immunizations Immunizations up to date: Yes Hx Diphtheria, Pertussis, Tetanus Vaccination: No Physical Exam - Vital signs Vitals: Temp Pulse Resp BP Pulse Ox 98.8 F 80 16 154/94 H 98 10/10/19 18:56 10/10/19 18:56 10/10/19 18:56 10/10/19 18:56 10/10/19 18:56 Course - Vital Signs Vital signs: Temp Pulse Resp BP Pulse Ox 98.8 F 80 16 154/94 H 98 10/10/19 19:47 10/10/19 18:56 10/10/19 18:56 10/10/19 18:56 10/10/19 18:56 Doctor's Discharge - Discharge Referrals: HOANG STEPHEN MD [Primary Care Provider] - Follow up as needed
--- NOTE | 2019-10-10 20:43 | RADIOLOGY REPORT (SQ) ---
EXAM DESCRIPTION: XR HUMERUS COMPLETED DATE/TME: 10/10/2019 19:51 CLINICAL HISTORY: 29 years, Male, Abscess possible foreign body right upper arm COMPARISON: None. NUMBER OF VIEWS: 3 TECHNIQUE: Frontal and lateral radiographs were obtained LIMITATIONS: None. FINDINGS: Visualized osseous structures are normal in appearance. Joint spaces are well-maintained. No acute fracture or dislocation is evident. A tiny radiopaque density projects about the soft tissues along the dorsum of the proximal forearm, seen only on the lateral projection. IMPRESSION: No acute osseous anomaly. Possible retained radiopaque foreign body located within the soft tissues about the dorsum of the proximal forearm, seen only on the lateral projection. Correlate with physical exam. copyright 2010 [employer]- All Rights Reserved
--- NOTE | 2019-10-10 22:05 | ER Document Report ---
ED General - General Chief Complaint: Abscess Stated Complaint: ABSCESS/RIGHT ARM Time Seen by Provider: 10/10/19 19:50 Primary Care Provider: HOANG STEPHEN MD [Primary Care Provider] - Follow up as needed Mode of Arrival: Ambulatory Information source: Patient Notes: 29-year-old male presenting with warmth swelling and abscess on right arm. Few weeks ago he had a piece of wood jammed into right proximal arm. He pulled the piece of wood out after incident occurred. Does not believe there is any retained material. Saw his primary care shortly after and was prescribed antibiotics for 5 days. After completion of antibiotics he noticed an abscess on proximal right arm develop. Area is currently tender to palpation, with associated fluctuation, approximatley 1.5 inches in diameter with associated surrounding warmth and erythema. No active draining from the site. Denies any fevers, chills, chest pain, shortness of breath, abdominal pain or other abscesses. Denies any injury to the forearm. TRAVEL OUTSIDE OF THE [place] IN LAST 30 DAYS: No - HPI Patient complains to provider of: abscess on right proximal arm - Related Data Allergies/Adverse Reactions: Penicillins Allergy (Intermediate, Verified 10/10/19 19:47) bee venom protein (honey bee) Allergy (Verified 10/10/19 19:47) Past Medical History - General Information source: Patient - Social History Smoking Status: Never Smoker Frequency of alcohol use: Heavy Family History: CAD, CVA, DM, Hyperlipidemia, Hypertension, Malignancy Patient has homicidal ideation: No - Past Medical History Cardiac Medical History: Reports: None Pulmonary Medical History: Reports: None EENT Medical History: Reports: None Neurological Medical History: Reports: None Endocrine Medical History: Reports: None Renal/ Medical History: Reports: Hx Kidney Stones. Denies: Hx Peritoneal Dialysis GI Medical History: Reports: None Musculoskeletal Medical History: Reports Hx Musculoskeletal Trauma Skin Medical History: Reports Hx Psoriasis Psychiatric Medical History: Reports: Hx Attention Deficit Hyperactivity Disorder, Hx Depression Traumatic Medical History: Reports: Hx Fractures Past Surgical History: Reports: Hx Oral Surgery - [place] teeth, Other - Pilonidal cyst removed - Immunizations Immunizations up to date: Yes Hx Diphtheria, Pertussis, Tetanus Vaccination: No Review of Systems - Review of Systems Constitutional: No symptoms reported EENT: No symptoms reported Cardiovascular: No symptoms reported Respiratory: No symptoms reported Gastrointestinal: No symptoms reported Genitourinary: No symptoms reported Musculoskeletal: No symptoms reported Skin: See HPI Physical Exam - Vital signs Vitals: Temp Pulse Resp BP Pulse Ox 98.8 F 80 16 154/94 H 98 10/10/19 18:56 10/10/19 18:56 10/10/19 18:56 10/10/19 18:56 10/10/19 18:56 Interpretation: Normal - General General appearance: Appears well, Alert - HEENT Head: Normocephalic, Atraumatic Eyes: Normal Conjunctiva: Normal - Psychological Associated symptoms: Normal affect, Normal mood - Skin Notes: approximately 1.5 in abscess on proximal right arm with associated warmth, erythema, tenderness and fluctulance Course - Re-evaluation Re-evalutation: 10/11/19 00:15 Patient with abscess to right proximal arm. Denies any involvement of the forearm. Abscess was drained and foreign body of a splinter approximately 2 inches was removed. Abscess was probed for any additional foreign bodies. No additional foreign bodies were identified. Bacitracin was applied to the incision site and incision was dressed. As patient has associated cellulitis surrounding the abscess will prescribe Bactrim for patient. Do not believe that the radiopaque body noted on x-ray is associated with the current complaint as patient has no pain or tenderness in that area and also reports that piece of wood did not injure that area. Return precautions for patient include fevers chills additional purulent discharge or tenderness to the area. Patient was instructed can use Tylenol or ibuprofen for pain relief. Patient to follow-up with PCM within 48 hours for wound check. All questions answered. Patient verbalized understanding of instructions. 10/11/19 00:17 10/11/19 00:18 10/11/19 01:41 - Vital Signs Vital signs: Temp Pulse Resp BP Pulse Ox 98.3 F 81 20 135/74 H 99 10/10/19 23:51 10/10/19 23:51 10/10/19 23:51 10/10/19 23:51 10/10/19 23:51 Procedures - Incision and Drainage proximal right arm Type: Simple Anesthetic type: 1% Lidocaine w/epi Blade size: Other - 15 I&D procedure: Chlorprep applied Incision Method: Incision made by scalpel Notes: 10/11/19 00:02 The area was prepped with ChloraPrep. The site was anesthetized with 1% lidocaine with epi. A linear incision along the skin lines was made and the purulent material was expressed. The abscess was explored which noted a retained foreign body. Foreign body of a 2 inch splinter was removed. The abscess was explored thoroughly. Bleeding was minimal. Area was cleaned and dried with bacitracin applied and bandage and applied. Patient tolerated procedure. Discharge - Discharge Clinical Impression: Abscess, Foreign body (FB) in soft tissue Cellulitis Qualifiers: Site of cellulitis: extremity Site of cellulitis of extremity: upper extremity Laterality: right Qualified Code(s): L03.113 - Cellulitis of right upper limb Condition: Stable Disposition: HOME, SELF-CARE Instructions: Abscess ([facility]), MRSA Cellulitis (OM), Post Incision and Drainage, Trimethoprim-Sulfa ([facility]) Additional Instructions: [facility] [address] [place] [id number] Wound Care After I&D 1. If an antibiotic is prescribed please try to take on a regular schedule as this may help resolve your infection faster. 2. Pain will usually be very well managed with [id number] medications such as Tylenol, Advil, or Aleve. If a narcotic prescription is used you cannot take this and drive or operate dangerous machinery while on this medication. 3. If bleeding occurs postoperatively apply firm pressure over the site for 10 minutes and it will usually stop. If it persists call the office and return during office hours or go to the emergency room in the evenings or weekends. 4. You may shower the next day. It is usually best to remove the outer dressing before the shower. Then gently pull out the gauze packing inside the abscess cavity. Do not moisten prior to removal. Wash any soap out of the wound daily. 5. After your shower and the packing has been removed you should gently clean the abscess cavity with 2-3 Q-tips and a solution of saline and peroxide that was sent home with you. If you did not receive this solution, you can mix peroxide and water as the peroxide will clean even tap water of any bacteria. Insert the Q-tip into the solution and then gently into the abscess cavity to keep the skin edges apart, gently swabbing using a total of 2- 3 Q-tips. This helps to keep the skin open to allow the abscess to heal from the inside out. If the skin heals too fast the abscess will reoccur as the skin closes over an open hole. Cover the site with a gauze dressing and tape at first after daily wound care. When the drainage is less you may switch over to band aids if more convenient. 6. When only the skin edges are left to heal you may clean the surface with the solution on a cotton ball. 7. Schedule a follow up with your PCM in 48 hours to monitor healing. Please seek assistance if develop fevers, chills. In some cases an excision of the area may be needed in the future to decrease risk of recurrence. 8. If any problems or questions call during office hours [phone]. If at night or on the weekend you may call [facility] [phone] and ask for the surgicalist machine feeder floorperson. Prescriptions: Sulfamethoxazole/Trimethoprim [Bactrim Ds Tablet] 2 tab PO BID #28 tablet Forms: Return to Work Referrals: HOANG STEPHEN MD [Primary Care Provider] - 10/13/19
[2019-10-10] MEDS ORDERED: LIDOCAINE 1%/EPINEPHRINE INJ 20 ML VIAL INJ ONE (22:14)
[2019-10-10 23:47] VITALS: BP 135/74
== END 2019-10-10 23:16 | disposition home or self-care (01) ==
LOC: ER 18:47
PROC: 0JCD0ZZ Extirpation of Matter from Right Upper Arm Subcutaneous Tissue and Fascia, Open Approach (ICD-10-PCS; principal; 2019-10-10)
DX: L02.413 Cutaneous abscess of right upper limb (principal); L03.113 Cellulitis of right upper limb; M79.5 Residual foreign body in soft tissue; Z88.0 Allergy status to penicillin; Z88.8 Allergy status to other drugs, medicaments and biological substances
CPT/HCPCS: 99283; 87070; 87205; 87075; 73060; 24201; J3490; 87077

== ENCOUNTER 2020-03-10 21:11 | Emergency (ER) | payer OTHER ==
[2020-03-10] MEDS ORDERED: BENZONATATE 100 MG CAPSULE PO ONE (21:33)
[2020-03-10] MEDS ORDERED: ACETAMINOPHEN 325 MG TABLET PO ONE (21:33)
--- NOTE | 2020-03-10 21:36 | ER Document Report ---
ED Medical Screen (RME) - General Chief Complaint: Cough Stated Complaint: COUGH Time Seen by Provider: 03/10/20 21:26 Primary Care Provider: HOANG STEPHEN MD [Primary Care Provider] - Follow up as needed Notes: Patient is a 30-year-old male who presents emergency department with a chief complaint of cough. Patient states that he has had a cough for the past week. Patient states that he may have had a slight fever. Patient reports that he has a coworker that was in contact with somebody who tested positive for COVID-19. Patient has not been tested for Covid 19 yet. Exam: Cough noted. I have greeted and performed a rapid initial assessment of this patient. A comprehensive ED assessment and evaluation of the patient, analysis of test results and completion of medical decision making process will be conducted by an additional ED providers. TRAVEL OUTSIDE OF THE [place] IN LAST 30 DAYS: No - Related Data Allergies/Adverse Reactions: Penicillins Allergy (Intermediate, Verified 10/10/19 19:47) bee venom protein (honey bee) Allergy (Verified 10/10/19 19:47) Home Medications: adderal Past Medical History - Social History Chew tobacco use (# tins/day): No Frequency of alcohol use: Occasional Drug Abuse: None Family history: CVA, DM, Hyperlipidemia, Hypertension, Malignancy Renal/ Medical History: Reports: Hx Kidney Stones. Denies: Hx Peritoneal Dialysis Musculoskeltal Medical History: Reports Hx Musculoskeletal Trauma Skin Medical History: Reports Hx Psoriasis Psychiatric Medical History: Reports: Hx Attention Deficit Hyperactivity Disorder, Hx Depression Traumatic Medical History: Reports: Hx Fractures Past Surgical History: Reports: Hx Oral Surgery - [place] teeth, Other - Pilonidal cyst removed - Immunizations Immunizations up to date: Yes Hx Diphtheria, Pertussis, Tetanus Vaccination: No Physical Exam - Vital signs Vitals: Temp Pulse Resp BP Pulse Ox 98.3 F 103 H 17 177/96 H 98 03/10/20 21:20 03/10/20 21:20 03/10/20 21:20 03/10/20 21:20 03/10/20 21:20 Course - Vital Signs Vital signs: Temp Pulse Resp BP Pulse Ox 98.3 F 103 H 17 177/96 H 98 03/10/20 21:31 03/10/20 21:20 03/10/20 21:20 03/10/20 21:20 03/10/20 21:20 Doctor's Discharge - Discharge Referrals: HOANG STEPHEN MD [Primary Care Provider] - Follow up as needed
--- NOTE | 2020-03-10 22:09 | ER Document Report ---
ED General - General Chief Complaint: Cough Stated Complaint: COUGH Time Seen by Provider: 03/10/20 21:26 Primary Care Provider: HOANG STEPHEN MD [Primary Care Provider] - Follow up as needed TRAVEL OUTSIDE OF THE [place] IN LAST 30 DAYS: No - HPI Notes: Patient is a 30-year-old male with no significant medical history who presents with nonproductive cough for the past 2 weeks. Patient states his cough has become more persistent over the last week. He endorses sore throat, mild hemoptysis, rhinorrhea, and diarrhea. Patient states one of his coworkers was exposed to COVID+ person 11 days ago. He denies fever, chest pain, shortness of breath, headache, abdominal pain, nausea, and vomiting. Patient reports moderate alcohol use but denies denies tobacco and recreational drug use. - Related Data Allergies/Adverse Reactions: Penicillins Allergy (Intermediate, Verified 10/10/19 19:47) bee venom protein (honey bee) Allergy (Verified 10/10/19 19:47) Home Medications: adderal Past Medical History - General Information source: Patient - Social History Smoking Status: Former Smoker Chew tobacco use (# tins/day): No Frequency of alcohol use: Moderate Drug Abuse: None Family History: CAD, CVA, DM, Hyperlipidemia, Hypertension, Malignancy Patient has homicidal ideation: No Renal/ Medical History: Reports: Hx Kidney Stones. Denies: Hx Peritoneal Dialysis Musculoskeletal Medical History: Reports Hx Musculoskeletal Trauma Skin Medical History: Reports Hx Psoriasis Psychiatric Medical History: Reports: Hx Attention Deficit Hyperactivity Disorder, Hx Depression Traumatic Medical History: Reports: Hx Fractures Past Surgical History: Reports: Hx Oral Surgery - [place] teeth, Other - Pilonidal cyst removed - Immunizations Immunizations up to date: Yes Hx Diphtheria, Pertussis, Tetanus Vaccination: No Review of Systems - Review of Systems Constitutional: No symptoms reported EENT: See HPI Cardiovascular: No symptoms reported Respiratory: See HPI Gastrointestinal: See HPI Genitourinary: No symptoms reported Male Genitourinary: No symptoms reported Musculoskeletal: No symptoms reported Skin: No symptoms reported Hematologic/Lymphatic: No symptoms reported Neurological/Psychological: No symptoms reported Physical Exam - Vital signs Vitals: Temp Pulse Resp BP Pulse Ox 98.3 F 103 H 17 177/96 H 98 03/10/20 21:20 03/10/20 21:20 03/10/20 21:20 03/10/20 21:20 03/10/20 21:20 - Notes Notes: PHYSICAL EXAMINATION: VITALS: Vitals reviewed and patient is hypertensive and mildly tachycardic. GENERAL: Well-appearing, well-nourished and in no acute distress. HEAD: Atraumatic, normocephalic. EYES: Pupils equal, round, and reactive to light, extraocular movements intact, sclera anicteric, conjunctiva are normal. ENT: Nares patent. Moist mucous membranes. Oropharynx clear without exudates. NECK: Normal range of motion, supple without lymphadenopathy. LUNGS: Dry cough. Breath sounds clear to auscultation bilaterally and equal. No wheezes, rales, or rhonchi. HEART: Regular, rate, and rhythm without murmurs. ABDOMEN: Soft, nontender, normoactive bowel sounds. No guarding, no rebound. No masses appreciated. EXTREMITIES: Normal range of motion, no pitting or edema. No cyanosis. NEUROLOGICAL: No focal neurological deficits. Moves all extremities spontaneously and on command. PSYCH: Normal mood, normal affect. SKIN: Warm, Dry, normal turgor, no rashes or lesions noted. Course - Re-evaluation Re-evalutation: Patient is a 30-year-old male who presents with worsening cough for the past 2 weeks. Patient is hypertensive with a BP of 177/96 and mildly tachycardic with a heart rate of 103. On exam, dry cough noted with the lungs clear to auscultation bilaterally. Oropharynx is clear with no erythema or exudates. Chest XR negative. Rapid flu and strep negative. Based on presentation and work up I am suspicious for upper respiratory infection, possible COVID+. Results discussed with patient as COVID precautions until testing results in about two days. Patient will be discharged home with a prescription for Tessalon Perles. Return precautions and follow up instructions given. Patient und erstands and is in agreement with plan. - Vital Signs Vital signs: Temp Pulse Resp BP Pulse Ox 98.3 F 103 H 17 177/96 H 98 03/10/20 21:31 03/10/20 21:20 03/10/20 21:20 03/10/20 21:20 03/10/20 21:20 - Diagnostic Test Radiology reviewed: Image reviewed, Reports reviewed Radiology results interpreted by me: Chest X-Ray 03/10/20 21:32 IMPRESSION: No acute abnormality as above. copyright 2010 [employer]- All Rights Reserved Discharge - Discharge Clinical Impression: Cough Upper respiratory infection Qualifiers: URI type: unspecified viral URI Qualified Code(s): J06.9 - Acute upper respiratory infection, unspecified Condition: Stable Disposition: HOME, SELF-CARE Instructions: COVID-19 Guidance for Persons Under Investigation Additional Instructions: Upper Respiratory Illness You have a viral infection of the respiratory passages -- a "cold." This common infection causes nasal congestion, drainage, and often sore throat and cough. It is caused by a virus and is highly contagious. The disease usually lasts a week or more, though the worst symptoms are usually over in 3 or 4 days. There is no "cure" for the viral infection -- it must run its course. If there is a complication, such as bacterial infection in the nose, sinuses, middle ear, or bronchial tubes, antibiotics may be required, but antibiotics won't affect the virus. If you smoke, you should STOP!! Drink plenty of fluids. A humidifier may help. An expectorant medication or decongestant may make you more comfortable. Use acetaminophen or ibuprofen for fever or aches. See the doctor if fever persists over two or three days, if there is any significant worsening of your symptoms, or if you simply fail to improve as expected. Prescriptions: Benzonatate [Tessalon Perles 100 mg Capsule] 1 - 2 tab PO Q8HP PRN #24 capsule PRN Reason: Referrals: HOANG STEPHEN MD [Primary Care Provider] - Follow up as needed
[2020-03-10 22:17] LABS: A TYPE INFLUENZA AG NEGATIVE (NEGATIVE); B INFLUENZA AG NEGATIVE (NEGATIVE)
--- NOTE | 2020-03-10 22:22 | RADIOLOGY REPORT (SQ) ---
EXAM DESCRIPTION: XR CHEST 1 VIEW COMPLETED DATE/TME: 03/10/2020 21:32 CLINICAL HISTORY: 30 years, Male, cough x1 week COMPARISON: February 05, 2019 NUMBER OF VIEWS: 1 TECHNIQUE: AP portable upright view the chest was obtained at 9:53 PM LIMITATIONS: None. FINDINGS: The heart size is within normal limits. Lungs appear clear. There is no evidence of pleural effusion or pneumothorax. No definite acute bony abnormality is seen. IMPRESSION: No acute abnormality as above. copyright 2010 [employer]- All Rights Reserved
[2020-03-10 23:04] VITALS: BP 132/82
== END 2020-03-10 23:05 | disposition home or self-care (01) ==
LOC: ER 21:11
DX: J06.9 Acute upper respiratory infection, unspecified (principal); B97.89 Other viral agents as the cause of diseases classified elsewhere; R04.2 Hemoptysis; J02.9 Acute pharyngitis, unspecified; J34.89 Other specified disorders of nose and nasal sinuses; R19.7 Diarrhea, unspecified; R00.0 Tachycardia, unspecified; I10 Essential (primary) hypertension; Z87.891 Personal history of nicotine dependence; Z88.0 Allergy status to penicillin; Z91.030 Bee allergy status; Z20.828 Contact with and (suspected) exposure to other viral communicable diseases
CPT/HCPCS: 99284; 87070; 87880; 87635; 87804; 71045; C9803